=== PATIENT | male | born 1950 | race Caucasian/White ===

== ENCOUNTER 2021-10-05 10:16 | Inpatient (IN) | payer MEDICARE, OTHER, SELFPAY ==
[2021-10-05] VITALS (14 sets, daily range): BP systolic 108–127; BP diastolic 59–68; PULSE 95–145; RESP 18–24; TEMP 37–37.4; O2SAT 95–98; BMI 29.1
--- NOTE | 2021-10-05 10:23 | EKG12_ITS ---
Test Reason : FEVER Blood Pressure : / mmHG Vent. Rate : 123 BPM Atrial Rate : 123 BPM P-R Int : 160 ms QRS Dur : 072 ms QT Int : 320 ms P-R-T Axes : 012 -58 046 degrees QTc Int : 458 ms Sinus tachycardia Left axis deviation Abnormal ECG Confirmed by UNA SOSA, KRISSY ([id number]), acquisitions editor FILIPPO VELASQUEZ ([id number]) on 10/08/2021 11:38:19 AM Referred By: DESHAUN Confirmed By:KELBY HEART MD
--- NOTE | 2021-10-05 10:35 | EDS_ITS ---
HPI History of Present Illness Chief Complaint: Fever Informant: patient and spouse/S.O. Onset/Context/Timing Onset: Today and Hours Context: Gradual Onset Timing: Continuous Current Severity: Mild Maximum Severity: Mild Narrative Narrative: 71-year-old male history of prostate CA with bony mets 3 years ago. He has had a recurrence. He just started chemotherapy 1 to 2 weeks ago. 1 to 2 weeks ago he was treated at [facility] with nephrostomy tubes and ureteral stents. Nephrostomy tube has been removed. It sounds like he had an obstructive uropathy from the prostate cancer. Today he had a fever of 102.7 at home with chills. He denies any nausea, vomiting, cough, shortness of breath, abdominal pain or any dysuria. He is chronically incontinent for the last several months. Patient is also has a history of diabetes. He sees Dr. Ferrari of oncology. Prior similar symptoms: Yes [facility] Medical History (Updated 10/05/21 @ 12:[address] Leonard Antunez MD) Colon polyps Diabetes type 2, controlled Diverticulosis Hard of hearing Hypertension Kidney stones Marijuana use Prostate cancer Small cell carcinoma of prostate Snoring Tinnitus of both ears Wrist fracture, left Home Medications amlodipine 5 mg tablet 5 mg PO DAILY 10/05/21 [History Last Taken Unknown] docusate sodium 100 mg capsule (Stool Softener) 100 mg PO BID 10/05/21 [History Last Taken Unknown] finasteride 5 mg tablet 5 mg PO DAILY 10/05/21 [History Last Taken Unknown] glipizide 5 mg tablet 5 mg PO DAILY 10/05/21 [History Last Taken Unknown] hydralazine 10 mg tablet 20 mg PO TID 10/05/21 [History Last Taken Unknown] hydrocodone-acetaminophen 5-325mg 5mg-325mg 1 tab PO Q8H PRN Pain 10/05/21 [History Last Taken Unknown] sennosides 8.6 mg capsule (senna) 17.2 mg PO DAILY 10/05/21 [History Last Taken Unknown] sitagliptin 100 mg tablet 100 mg PO DAILY 10/05/21 [History Last Taken Unknown] tamsulosin 0.4 mg capsule 0.4 mg PO QHS 10/05/21 [History Last Taken Unknown] Allergy/AdvReac Type Severity Reaction Status Date / Time diphenhydramine Allergy CONFUSION Verified 10/05/21 10:17 [From [facility]] Social History Smoking Status: Former smoker ROS ROS ED ROS Narrative Fever and chills. Review of Systems ROS Unobtainable: Denies due to encephalopathy Constitutional Constitutional ED: Reports chills and fever(s) Eyes Eyes: Denies blurry vision ENT ENT ED: Denies ear pain Cardiovascular Cardiovascular: Denies chest pain Respiratory/Chest Respiratory/Chest: Denies cough or dyspnea Gastrointestinal Gastrointestinal: Denies abdominal pain, constipation, diarrhea, melena, nausea or vomiting Genitourinary Genitourinary ED: Denies dysuria or hematuria Musculoskeletal Musculoskeletal: Denies arthralgias Integumentary Denies abscess Neurologic Neurologic: Denies headache(s) Psychiatric Psychiatric: Denies anxiety Endocrine Endocrinology: Denies cold intolerance Hematologic/Lymphatic Hematologic/Lymphatic: Denies systems reviewed and no addt'l complaints, except as documented or easy bruising Allergic/Immunologic Allergic/Immunologic ED: Denies mouth swelling EXAM Physical Exam Narrative Exam Narrative: 71-year-old male vital signs are stable. Initial temperature is 98.6 but he feels warm like he still has a fever. He was given no antipyretics at home. Pulse ox is 95% on room air. Initial blood pressure 113/61. H EENT exam which was membranes. Otherwise unremarkable. Neck nontender no meningismus. No lymphadenopathy. Lungs clear to auscultation bilaterally. Heart tachycardic rate about 130 no murmur. Abdomen soft nontender normal bowel sounds no peritoneal signs. Moving all 4 extremities. Calves are nontender without edema or cords. Skin no rashes. Back nontender. Neurologically is awake and alert. Answering questions following commands Const Vital Signs: 10/05/21 10:17 10/05/21 10:50 10/05/21 10:53 Temperature 98.6 F 98.6 F 98.6 F Temperature Source Temporal Oral Oral Pulse Rate 145 H 145 H Respiratory Rate 20 H 20 H Respiratory Effort Blood Pressure 113/61 113/61 Blood Pressure Mean 78 Pulse Ox 95 95 Oxygen Delivery Method Room Air Room Air 10/05/21 10:53 10/05/21 10:53 10/05/21 10:53 Temperature 98.6 F Temperature Source Oral Pulse Rate Respiratory Rate Respiratory Effort Normal Non-Labored Blood Pressure Blood Pressure Mean Pulse Ox 95 Oxygen Delivery Method Room Air 10/05/21 11:25 10/05/21 11:25 10/05/21 11:26 Temperature 98.7 F 98.7 F Temperature Source Oral Oral Pulse Rate 111 H 111 H Respiratory Rate 19 H 19 H Respiratory Effort Blood Pressure 115/59 L 115/59 L Blood Pressure Mean 77 Pulse Ox 96 96 Oxygen Delivery Method Room Air Room Air Positive well nourished and well developed; Negative for obese, cachectic, contractures or unkempt General Appearance ED: well developed; Negative for unkempt, cachectic, contractures or pallor Nutritional Appearance: Negative for cachectic or obese HEENT Reports moist mucous membranes; Denies dry mucous membranes Negative for trauma or tenderness Mouth ED: No dry mucous membranes Mouth: No dry mucous membranes Eyes PERRL and EOMs intact bilaterally General Eye ED: Negative for pale conjunctiva or scleral icterus Neck no lymphadenopathy, supple and no JVD General: Negative for tenderness Chest Wall inspection of chest normal and palpation of chest normal Resp normal respiratory effort and clear to auscultation bilaterally Effort and Inspection: Negative for retractions Auscultation: Negative for rales, rhonchi or wheezes Cardio regular rhythm, S1 normal heart sound, S2 normal heart sound and no murmurs; Negative for regular rate Palpation: Negative for palpable S3 Rate: tachycardic; Negative for bradycardia GI normal to inspection, nondistended, normoactive bowel sounds, non-tender, non- distended and no masses Inspection: Negative for abdominal distention Auscultation: normoactive bowel sounds Palpation: soft; Negative for tender, guarding or splenomegaly Back/Spine no CVA tenderness General Back: Negative for CVA tenderness Extremity normal to inspection General Extremety ED: Negative for edema or tenderness General Extremity: Negative for edema Neuro oriented x3, CN's II-XII intact bilaterally and no sensory deficits noted Sensorium / Orientation: alert; Negative for orientation impaired Motor Exam: Negative for strength 5/5 throughout Psych mental status grossly normal Appearance: Negative for unkempt Attitude: No agitated Mood & Affect: Negative for depressed Skin no rashes or lesions noted and no wounds General Skin Exam: Negative for elasticity normal, jaundice or pallor Rashes: No rashes noted Trauma: Negative for abrasion Wounds: Negative for wounds noted MDM MDM MDM Narrative Medical decision making narrative: 71-year-old male currently under chemotherapy for prostate CA with metastases. Recent hospitalization for surgery and ureteral stents. Today developed a fever 1-2.7 at home. He will undergo a septic work-up. Treated with IV fluids. P.o. Tylenol. And suspected admission. Multiple repeat exams the patient is doing well at 12:10 PM. He will be admitted to the hospital. I will speak to the hospitalist if they want antibiotics started or not. Lab Data Attestation: I reviewed the patient's lab results. Lab results narrative: CBC shows white count 1.5. H&H 10.7 and 31.7. Platelets of 123. No old labs available in our system for comparison. Patient is obviously pancytopenic. 73% neutrophils 5% bands. PT/INR and PTT are unremarkable. Electrolytes show sodium 133. A gap of 9 BUN and creatinine of 20 and 1.1. Glucose of 139. Liver enzymes unremarkable except for ALK PHOS of 162. Lactic acid is elevated 2.4. Urinalysis shows no nitrites. Urinalysis shows no nitrates, no white cells and no bacteria. Positive for leukocyte esterase and red cells. Culture will be sent. Discussed with hospitalist. He is going to start the patient on cefepime IV. He will be admitted to medical surgical unit. Labs: Laboratory Results - last 24 hr 10/05/21 10/05/21 10/05/21 10:45 10:45 10:45 WBC 1.5 L RBC 3.53 L Hgb 10.7 L Hct 31.7 L MCV 89.8 MCH 30.3 MCHC 33.8 RDW Std Deviation 59.9 H RDW Coeff of Sunshine 18.8 H Plt Count 123 L MPV 9.1 Neut % (Auto) Not Reportable Total Counted 100 Neutrophils % (Manual) 73 H Band Neutrophils % 5 Lymphocytes % (Manual) 19 Monocytes % (Manual) 2 Metamyelocytes % 1 Diff Path Review May foll Platelet Estimate SLT DEC RBC Morphology N CHROM Anisocytosis 1+ PT 13.6 INR 1.1 APTT 27.5 Sodium 133 L Potassium 3.9 Chloride 103 Carbon Dioxide 21.0 Anion Gap 9 BUN 20 H Creatinine 1.10 Estim Creat Clear Calc 67.50 Est GFR (MDRD) Af Amer 85 Est GFR (MDRD) Non-Af 70 BUN/Creatinine Ratio 18.2 Glucose 139 H Lactic Acid Calcium 9.1 Total Bilirubin 0.90 AST 26 ALT 44 Alkaline Phosphatase 162 H Total Protein 6.4 Albumin 3.3 Globulin 3.1 Albumin/Globulin Ratio 1.1 Urine Color Urine Clarity Urine pH Ur Specific [place] Urine Protein Urine Glucose (UA) Urine Ketones Urine Occult Blood Urine Nitrite Urine Bilirubin Urine Urobilinogen Ur Leukocyte Esterase Urine RBC Urine WBC Ur Squamous Epith Cells Urine Bacteria Urine Mucus 10/05/21 10/05/21 10:45 11:00 WBC RBC Hgb Hct MCV MCH MCHC RDW Std Deviation RDW Coeff of Sunshine Plt Count MPV Neut % (Auto) Total Counted Neutrophils % (Manual) Band Neutrophils % Lymphocytes % (Manual) Monocytes % (Manual) Metamyelocytes % Diff Path Review Platelet Estimate RBC Morphology Anisocytosis PT INR APTT Sodium Potassium Chloride Carbon Dioxide Anion Gap BUN Creatinine Estim Creat Clear Calc Est GFR (MDRD) Af Amer Est GFR (MDRD) Non-Af BUN/Creatinine Ratio Glucose Lactic Acid 2.4 H* Calcium Total Bilirubin AST ALT Alkaline Phosphatase Total Protein Albumin Globulin Albumin/Globulin Ratio Urine Color Yellow Urine Clarity Cloudy Urine pH 6.5 Ur Specific [place] 1.010 Urine Protein 100 H Urine Glucose (UA) Normal Urine Ketones Negative Urine Occult Blood 250 H Urine Nitrite Negative Urine Bilirubin Negative Urine Urobilinogen 1 H Ur Leukocyte Esterase 100 H Urine RBC 50-100 SEEN Urine WBC 0-5 SEEN Ur Squamous Epith Cells 0 SEEN Urine Bacteria 0 SEEN Urine Mucus 0 SEEN Radiography Chest X-Ray - ED: 1 View, Read by ED Physician, Heart, Lungs, Mediastinum, Bony Structures, No Acute Disease and Chronic Changes Diagnostic Testing: Clinical Impression(s) from Imaging Studies Chest X-Ray 10/05/21 11:10 IMPRESSION: Lungs are clear. Electronically Signed: Taran Bowers MD at 11:22 EDT , Chest, portable, single view interpreted by myself and radiologist shows no acute abnormality. Normal cardiac silhouette and mediastinum. Rhythm Strip Rhythm Strip: Sinus Tach Rate: 125 Ectopy: None EKG Initial EKG: Attestation: I personally reviewed and interpreted this EKG as follows: Interpretation: No Acute Injury Pattern and Sinus Tachycardia Comments: Sinus tachycardia rate of 123. No acute signs of TX or ischemia. Discharge Plan Dx/Rx/DC Orders Clinical Impression: Neutropenic fever, Prostate cancer metastatic to multiple sites, Pancytopenia, Immunocompromised patient, History of diabetes mellitus Disposition Disposition: Acute Care Hospital [facility]
[2021-10-05] MEDS: 0.9% Normal Saline 1,000 ML 999 ML IV (10:44)
[2021-10-05] MEDS: Acetaminophen 500 MG Tablet 1000 MG PO (10:49)
[2021-10-05 10:53] LABS: Hematocrit 31.7 % (40-54); Hemoglobin 10.7 g/dL (13.0-16.5); Mean Corp Hgb Conc 33.8 g/dL (32-36); Mean Corpuscular Hgb 30.3 pg (27.0-32.0); Mean Corpuscular Volume 89.8 fL (80-94); Mean Platelet Vol. 9.1 fl (6.2-12.0); POSITIVE COUNT YES; POSITIVE DIFFERENTIAL YES; POSITIVE MORPHOLOGY YES; Platelet Count 123 K/mm3 (150-450); RBC Distribution Width CV 18.8 % (11.6-14.6); RBC Distribution Width SD 59.9 fl (35.1-43.9); Red Blood Count 3.53 M/mm3 (4.6-6.2); White Blood Count 1.5 K/mm3 (4.4-11.0)
[2021-10-05 10:54] LABS: Differential Indicated MANUAL DIFF
[2021-10-05 11:02] LABS: International Normalized Ratio 1.1; Partial Thromboplast Time 27.5 Seconds (24.1-36.2); Prothrombin Time (Protime)PT. 13.6 SECONDS (11.7-14.9)
[2021-10-05 11:09] LABS: ALB/GLOB Ratio 1.1 RATIO (0.9-2.4); AST(SGOT) 26 U/L (15-37); Alanine Aminotransfer ALT/SGPT 44 U/L (16-61); Albumin, Serum 3.3 g/dL (3.2-5.0); Alkaline Phosphatase 162 U/L (45-117); Anion Gap 9 (5-15); BUN 20 mg/dL (7-18); BUN/Creat Ratio 18.2 RATIO (10-20); Calcium,Total 9.1 mg/dL (8.5-10.1); Chloride 103 mmol/L (98-107); EST Glomerular Filtration Rate 70 mL/min (>60); Est Glom Filt Rate - Afr Amer 85 mL/min (>60); Globulin 3.1 g/dL (2.2-4.2); Glucose 139 mg/dL (74-106); Potassium 3.9 mmol/L (3.5-5.1); Protein, Total 6.4 g/dL (6.4-8.2); Sodium Level 133 mmol/L (136-145)
--- NOTE | 2021-10-05 11:10 | RAD_ITS ---
STUDY: X-RAY CHEST REASON FOR EXAM: Male, 71 years old. FEVER . Oncology patient. TECHNIQUE: Single AP portable view of the chest. COMPARISON: None. FINDINGS: EKG electrodes are seen. The lungs are clear and expanded. There is no demonstrated pleural abnormality. Normal size heart. Normal mediastinum and carly. Normal visualized pulmonary arteries. There is atherosclerotic tortuosity of the aortic arch and descending thoracic aorta. There are diffuse degenerative changes of the visualized thoracic spine. Normal visualized ribs, clavicles, and shoulders. There is no demonstrated abnormality of the visualized soft tissue structures of the upper abdomen. RAD/Chest 1 View (Portable) IMPRESSION: Lungs are clear. Electronically Signed: Taran Bowers MD at 11:22 EDT ,
[2021-10-05 11:14] LABS: Bacteria 0 SEEN /hpf (None Seen); Mucous, Urine 0 SEEN /hpf (<or=2+); Squamous Epithelial Cells - UA 0 SEEN /hpf (0-5)
[2021-10-05 11:15] LABS: Lactic Acid 2.4 mmol/L (0.4-1.9)
[2021-10-05 11:20] LABS: Color, Urine Yellow (Yellow); Glucose, Dipstick Normal (Normal); Ketone-Dipstick Negative (Negative); Leukocyte Esterase-Dipstick 100 /ul (Negative); Nitrite-Dipstick Negative (Negative); Occult Blood-Urine 250 /ul (Negative); Protein-Dipstick 100 mg/dl (Negative); Urine Bilirubin Dipstick Negative (Negative); Urine Clarity Cloudy (Clear); Urine Urobilinogen 1 mg/dl (Normal); Urine pH 6.5 (5.0 - 8.0)
[2021-10-05 11:24] LABS: Lymphocyte 19 % (19-41); Metamyelocyte 1 % (0-1); Monocyte 2 % (0-10); Neutrophil-Band 5 % (0-5); Neutrophil-Segmented 73 % (47-70); Total Cells Counted 100 (MANUAL DIFF)
[2021-10-05 11:26] LABS: Anisocytosis 1+; Platelet Estimate SLT DEC (ADEQ); Red Cell Morphology N CHROM NORMAL (NORM C&C)
[2021-10-05 11:41] LABS: Red Blood Cells-Urine 50-100 SEEN /hpf (0-5); White Blood Cells 0-5 SEEN /hpf (0-5)
[2021-10-05 12:37] LABS: Magnesium 1.6 mg/dL (1.6-2.6); Phosphorus 1.9 mg/dL (2.5-4.9)
--- NOTE | 2021-10-05 13:33 | HP.PCM.HOS_ITS ---
[facility] Date of Admission: 10/05/21 Date of Service: 10/05/21 Chief Complaint: Fever started today after chemotherapy, about 1 week. History of prostate cancer HPI Narrative LUPILLO RUEDA, is a 71 M with history of prostate cancer the patient to start of chemotherapy for 3 days 09/26-09/28 came to ED for fever. Patient noticed fever temperature measured 102.7 Fahrenheit with chills. Patient denies any focal symptoms of URI, cough sore throat, shortness of breath chest pain or pressure, burning micturition/dysuria, abdominal pain, nausea vomiting or diarrhea. Prior to that patient was admitted in [facility] between -25 September and had right inguinal orchidectomy and found to have a small cell cancer, prostate origin w ith metastasis to epididymis. Patient has urinary incontinence. He also had obstructive uropathy with decreased urine output which required bilateral nephrostomy tube and bilateral ureteric stent. After that patient started making urine and nephrostomy tubes are removed. Patient follows Dr. ROBERTO. His office note of 09/17/2021 reviewed. He was diagnosed with prostate adenocarcinoma PSA 69.60, Plaistow's score 8, clinical stage IV. T1 cN0 M1 with single bone metastasis. Patient was diagnosed with prostate cancer and had brachytherapy and RT to left pelvic bone. Patient also history of Lupron/Casodex and denosumab discontinued in May 2020. Patient is also chronic smoker he quit in 2005. He started smoking in his teenage and was intermittently smoker with multiple relapses and quitting. He said he was not a heavy smoker. [facility] Medical History Colon polyps Diabetes type 2, controlled Diverticulosis Hard of hearing Hypertension Kidney stones Marijuana use Prostate cancer Small cell carcinoma of prostate Snoring Tinnitus of both ears Wrist fracture, left Home Medications amlodipine 5 mg tablet 5 mg PO DAILY 10/05/21 [History Last Taken Unknown] docusate sodium 100 mg capsule (Stool Softener) 100 mg PO BID 10/05/21 [History Last Taken Unknown] finasteride 5 mg tablet 5 mg PO DAILY 10/05/21 [History Last Taken Unknown] glipizide 5 mg tablet 5 mg PO DAILY 10/05/21 [History Last Taken Unknown] hydralazine 10 mg tablet 20 mg PO TID 10/05/21 [History Last Taken Unknown] hydrocodone-acetaminophen 5-325mg 5mg-325mg 1 tab PO Q8H PRN Pain 10/05/21 [History Last Taken Unknown] sennosides 8.6 mg capsule (senna) 17.2 mg PO DAILY 10/05/21 [History Last Taken Unknown] sitagliptin 100 mg tablet 100 mg PO DAILY 10/05/21 [History Last Taken Unknown] tamsulosin 0.4 mg capsule 0.4 mg PO QHS 10/05/21 [History Last Taken Unknown] Allergy/AdvReac Type Severity Reaction Status Date / Time diphenhydramine Allergy CONFUSION Verified 10/05/21 10:17 [From Benadryl] Social History Smoking Status: Former smoker ROS ROS Narrative Constitutional: Reports fatigue and weakness. Fever HEENT: Reports systems reviewed and no addt'l complaints, except as documented Respiratory/Chest: Denies chest pain, shortness of breath at rest or with exertion Gastrointestinal: Denies coffee ground emesis, hematemesis or vomiting Genitourinary: Denies burning urination . Chronic urinary incontinence. Right orchidectomy Musculoskeletal: Denies joint pain and limited range of motion Neurologic: Denies seizure-like activity skin: No ulcer. No rash Endocrinology: Reports systems reviewed and no addt'l complaints, except as documented Hematologic/Lymphatic: Reports systems reviewed and no addt'l complaints, except as documented Rest 14 ROS are negative except as mentioned in HPI Vital Signs Vital Signs Vital Signs: 10/05/21 10:17 10/05/21 10:50 10/05/21 10:53 Temperature 98.6 F 98.6 F 98.6 F Temperature Source Temporal Oral Oral Pulse Rate 145 H 145 H Respiratory Rate 20 H 20 H Respiratory Effort Blood Pressure 113/61 113/61 Blood Pressure Mean 78 Pulse Ox 95 95 Oxygen Delivery Method Room Air Room Air 10/05/21 10:53 10/05/21 10:53 10/05/21 10:53 Temperature 98.6 F Temperature Source Oral Pulse Rate Respiratory Rate Respiratory Effort Normal Non-Labored Blood Pressure Blood Pressure Mean Pulse Ox 95 Oxygen Delivery Method Room Air 10/05/21 11:25 10/05/21 11:25 10/05/21 11:26 Temperature 98.7 F 98.7 F Temperature Source Oral Oral Pulse Rate 111 H 111 H Respiratory Rate 19 H 19 H Respiratory Effort Blood Pressure 115/59 L 115/59 L Blood Pressure Mean 77 Pulse Ox 96 96 Oxygen Delivery Method Room Air Room Air 10/05/21 12:00 10/05/21 12:00 10/05/21 12:00 Temperature 98.6 F 98.6 F Temperature Source Oral Oral Pulse Rate 105 H 105 H Respiratory Rate 24 H 24 H Respiratory Effort Blood Pressure 108/64 108/64 Blood Pressure Mean 78 Pulse Ox 95 95 Oxygen Delivery Method Room Air Room Air 10/05/21 12:20 10/05/21 13:09 10/05/21 13:09 Temperature 98.6 F 98.9 F Temperature Source Oral Temporal Pulse Rate 105 H 102 H Respiratory Rate 24 H 23 H Respiratory Effort Blood Pressure 108/64 109/65 Blood Pressure Mean 79 Pulse Ox 95 95 Oxygen Delivery Method Room Air Room Air 10/05/21 13:10 Temperature 98.9 F Temperature Source Temporal Pulse Rate 102 H Respiratory Rate 23 H Respiratory Effort Blood Pressure 109/65 Blood Pressure Mean Pulse Ox 95 Oxygen Delivery Method Room Air Weight Weight: 208 lb 15.971 oz Body Mass Index (BMI) 29.1 Physical Exam Narrative General: Alert, Oriented x3, Cooperative HEENT: Atraumatic, PERRLA, EOMI, Normocephalic Oral: Oral mucosa dry. No Gingival or Mucosal Lesions/ Ulcerations Neck: Supple, No JVD, Negative Carotid Bruits Lungs: Air entry diminished in bilateral lung bases. No crepitation/rhonchi Cardiovascular: Sinus tachycardia, Normal S1, Normal S2, No murmurs Abdomen: Bowel Sounds Present, Soft, Non Tender, Non-Distended : Right inguinal surgical scar well-healed. No bruise/purulent discharge. Urinary incontinence. No renal angle/suprapubic tenderness. Extremities: No edema, Capillary Refill Less than 3 Seconds Skin: No rashes, No breakdown Musculoskeletal: No Tenderness to Palpation of Joints or Extremities. ROM full Neurological: Cranial nerves II-XII grossly intact, DTR 2+/4. Muscle strength 4/5 at major joints Psych/Mental Status: Normal Affect, Appropriate. Results Lab / Micro Data Result Diagrams: 10/05/21 10:45 10/05/21 10:45 Labs: Laboratory Results - last 24 hr 10/05/21 10:45: WBC 1.5 L, RBC 3.53 L, Hgb 10.7 L, Hct 31.7 L, MCV 89.8, MCH 30.3, MCHC 33.8, RDW Std Deviation 59.9 H, RDW Coeff of Sunshine 18.8 H, Plt Count 123 L, MPV 9.1, Neut % (Auto) Not Reportable, Total Counted 100, Neutrophils % (Manual) 73 H, Band Neutrophils % 5, Lymphocytes % (Manual) 19, Monocytes % (Manual) 2, Metamyelocytes % 1, Diff Path Review July, Platelet Estimate SLT DEC, RBC Morphology N CHROM, Anisocytosis 1+ 10/05/21 10:45: PT 13.6, INR 1.1, APTT 27.5 10/05/21 10:45: Sodium 133 L, Potassium 3.9, Chloride 103, Carbon Dioxide 21.0, Anion Gap 9, BUN 20 H, Creatinine 1.10, Estim Creat Clear Calc 67.50, Est GFR (M DRD) Af Amer 85, Est GFR (MDRD) Non-Af 70, BUN/Creatinine Ratio 18.2, Glucose 139 H, Calcium 9.1, Total Bilirubin 0.90, AST 26, ALT 44, Alkaline Phosphatase 162 H, Total Protein 6.4, Albumin 3.3, Globulin 3.1, Albumin/Globulin Ratio 1.1 10/05/21 10:45: Lactic Acid 2.4 H* 10/05/21 10:45: Phosphorus 1.9 L, Magnesium 1.6 10/05/21 11:00: Urine Color Yellow, Urine Clarity Cloudy, Urine pH 6.5, Ur Specific [place] 1.010, Urine Protein 100 H, Urine Glucose (UA) Normal, Urine Ketones Negative, Urine Occult Blood 250 H, Urine Nitrite Negative, Urine Bilirubin Negative, Urine Urobilinogen 1 H, Ur Leukocyte Esterase 100 H, Urine RBC 50-100 SEEN, Urine WBC 0-5 SEEN, Ur Squamous Epith Cells 0 SEEN, Urine Bacteria 0 SEEN, Urine Mucus 0 SEEN Rhythm Strip Rhythm Strip: Sinus Tach Rate: 125 Ectopy: None Radiology Impression Chest X-Ray 10/05/21 11:10 IMPRESSION: Lungs are clear. Electronically Signed: Taran Bowers MD at 11:22 EDT , Assessment & Plan Assessment/Plan (1) Neutropenic fever: (2) Prostate cancer metastatic to multiple sites: PLAN: Plan This is 71-year-old gentleman with history of prostate cancer admitted for neutropenic fever 1. Neutropenic fever complicated by recent chemotherapy: Patient had chemotherapy for contributive 3 days about a week 09/26?09/28. Patient started on cefepime. Blood cultures x2, urine culture ordered. UA LE 100, WBC 0-5, RBC 50?100 cells, nitrite negative urine bacteria 0. Denies dysuria. Chest x-ray individually reviewed shows no infiltrate. Patient does not have abdominal pain/rash/URI or LRI. Exact focus of infection unclear. 2. Pancytopenia complicated by chemotherapy: WBC count 1.5 thousand, neutrophil manual 73% about 1000. ANC not reported yet. Does not need Granix. H&H 10.7/31%, platelet count 1 23,000. Monitor CBC with differential daily. 3. Prostate adenocarcinoma, Plaistow's score 8 and clinical stage IV, T1 cN0 M1 with single bone metastasis with recent metastasis to right epididymis status post right high inguinal orchiectomy in [facility]: Patient follows Dr. ROBERTO. He was recently admitted in [facility] between ?25 September. 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 4. Diabetes mellitus type 2: Patient on oral hypoglycemic agents. Glucose is 139. 5. Electrolyte abnormality: Magnesium 1.6 low normal, phosphorus 1.9. Magnesium and phosphorus replaced 7. Other comorbidities include hypertension, diverticulosis, history of kidney stones: Well-controlled. BP 109/65. VT prophylaxis: High risk. Lovenox 40 m subcu daily. Bilateral SCDs Laboratory Results 10/05/21 10:45: WBC 1.5 L, RBC 3.53 L, Hgb 10.7 L, Hct 31.7 L, MCV 89.8, MCH 30.3, MCHC 33.8, RDW Std Deviation 59.9 H, RDW Coeff of Sunshine 18.8 H, Plt Count 123 L, MPV 9.1, Neut % (Auto) Not Reportable, Absolute Neuts (auto) Pending, Absolute Lymphs (auto) Pending, Total Counted 100, Neutrophils % (Manual) 73 H, Band Neutrophils % 5, Lymphocytes % (Manual) 19, Monocytes % (Manual) 2, Metam yelocytes % 1, Diff Path Review July, Platelet Estimate SLT DEC, RBC Morphology N CHROM, Anisocytosis 1+ 10/05/21 10:45: PT 13.6, INR 1.1, APTT 27.5 10/05/21 10:45: Sodium 133 L, Potassium 3.9, Chloride 103, Carbon Dioxide 21.0, Anion Gap 9, BUN 20 H, Creatinine 1.10, Estim Creat Clear Calc 67.50, Est GFR (MDRD) Af Amer 85, Est GFR (MDRD) Non-Af 70, BUN/Creatinine Ratio 18.2, Glucose 139 H, Calcium 9.1, Total Bilirubin 0.90, AST 26, ALT 44, Alkaline Phosphatase 162 H, Total Protein 6.4, Albumin 3.3, Globulin 3.1, Albumin/Globulin Ratio 1.1 10/05/21 10:45: Lactic Acid 2.4 H* 10/05/21 10:45: Phosphorus 1.9 L, Magnesium 1.6 10/05/21 11:00: Urine Color Yellow, Urine Clarity Cloudy, Urine pH 6.5, Ur Specific [place] 1.010, Urine Protein 100 H, Urine Glucose (UA) Normal, Urine Ketones Negative, Urine Occult Blood 250 H, Urine Nitrite Negative, Urine Bilirubin Negative, Urine Urobilinogen 1 H, Ur Leukocyte Esterase 100 H, Urine RBC 50-100 SEEN, Urine WBC 0-5 SEEN, Ur Squamous Epith Cells 0 SEEN, Urine Bacteria 0 SEEN, Urine Mucus 0 SEEN Clinical Impression(s) from Imaging Studies Chest X-Ray 10/05/21 11:10
[2021-10-05 14:09] LABS: Nucleated Red Bld Cells,Manual 1.5 % (0-5)
[2021-10-05 14:10] LABS: Absolute Neutrophil Count 1.2 X10^3/uL (2.0-7.7); Neutrophil # 1.17 X10^3/uL (2.7-7.7)
[2021-10-05 14:11] LABS: Absolute Lymphocyte Count 0.28 X10^3/uL (0.83-4.51); Lymphocyte # 0.28 X10^3/ul (0.83-4.51)
[2021-10-05 14:49] LABS: Reflex Lactate? Y
[2021-10-05 15:31] LABS: Lactic Acid 1.9 mmol/L (0.4-1.9)
[2021-10-05] MEDS: Enoxaparin 40 MG/0.4 ML Syringe SC (15:32)
[2021-10-05] MEDS: 0.9% Normal Saline 1,000 ML 100 ML IV (15:32)
[2021-10-05] MEDS: hydrALAZINE 10 MG Tablet 20 MG PO ×2 (15:32→22:17)
[2021-10-05] MEDS: Senna/Docusate Sodium 1 Tablet 2 TABLET PO (22:17)
[2021-10-05] MEDS: Acetaminophen 325 MG Tablet 650 MG PO (23:39)
[2021-10-06] VITALS (8 sets, daily range): BP systolic 99–143; BP diastolic 58–96; PULSE 87–118; RESP 16–18; TEMP 36.5–37.6; O2SAT 96–99
[2021-10-06] MEDS: 0.9% Normal Saline 1,000 ML 100 ML IV (02:14)
[2021-10-06] MEDS: oxyCODONE 5 MG Tablet PO (02:35)
[2021-10-06] MEDS: hydrALAZINE 10 MG Tablet 20 MG PO (06:06)
[2021-10-06 07:19] LABS: Hematocrit 26.3 % (40-54); Hemoglobin 8.7 g/dL (13.0-16.5); Mean Corp Hgb Conc 33.1 g/dL (32-36); Mean Corpuscular Hgb 30.9 pg (27.0-32.0); Mean Corpuscular Volume 93.3 fL (80-94); Mean Platelet Vol. 9.7 fl (6.2-12.0); POSITIVE COUNT YES; POSITIVE DIFFERENTIAL YES; POSITIVE MORPHOLOGY YES; Platelet Count 61 K/mm3 (150-450); RBC Distribution Width CV 18.6 % (11.6-14.6); RBC Distribution Width SD 62.9 fl (35.1-43.9); Red Blood Count 2.82 M/mm3 (4.6-6.2)
[2021-10-06 07:28] LABS: Differential Indicated MANUAL DIFF; White Blood Count 1.3 K/mm3 (4.4-11.0)
[2021-10-06 07:31] LABS: ALB/GLOB Ratio 0.9 RATIO (0.9-2.4); AST(SGOT) 28 U/L (15-37); Alanine Aminotransfer ALT/SGPT 42 U/L (16-61); Albumin, Serum 2.5 g/dL (3.2-5.0); Alkaline Phosphatase 107 U/L (45-117); Anion Gap 6 (5-15); BUN 17 mg/dL (7-18); BUN/Creat Ratio 18.7 RATIO (10-20); Calcium,Total 8.5 mg/dL (8.5-10.1); Chloride 107 mmol/L (98-107); Creatinine, Serum 0.91 mg/dL (0.70-1.30); EST Glomerular Filtration Rate 88 mL/min (>60); Est Glom Filt Rate - Afr Amer 107 mL/min (>60); Globulin 2.7 g/dL (2.2-4.2); Glucose 156 mg/dL (74-106); Potassium 3.4 mmol/L (3.5-5.1); Protein, Total 5.2 g/dL (6.4-8.2); Sodium Level 136 mmol/L (136-145)
[2021-10-06 07:34] LABS: Hemoglobin A1c 6.2 % (3.8-5.6)
[2021-10-06 08:23] LABS: Lymphocyte 21 % (19-41); Metamyelocyte 1 % (0-1); Monocyte 7 % (0-10); Neutrophil-Band 3 % (0-5); Neutrophil-Segmented 68 % (47-70); Total Cells Counted 100 (MANUAL DIFF)
[2021-10-06 08:25] LABS: Platelet Estimate MOD DEC (ADEQ); Red Cell Morphology NORM C+C NORMAL (NORM C&C)
[2021-10-06 08:26] LABS: Absolute Lymphocyte Count 0.27 X10^3/uL (0.83-4.51); Absolute Neutrophil Count 0.9 X10^3/uL (2.0-7.7)
[2021-10-06] MEDS: Potassium Chloride Oral Tablet 20 MEQ 40 MEQ PO (08:42)
[2021-10-06] MEDS: LINAGLIPTIN 5 MG TABLET PO (08:44)
[2021-10-06] MEDS: Finasteride 5 MG Tablet PO (08:44)
[2021-10-06] MEDS: glipiZIDE 5 MG Tablet PO (08:45)
[2021-10-06] MEDS: Senna/Docusate Sodium 1 Tablet 2 TABLET PO ×2 (08:45→21:31)
[2021-10-06 09:21] LABS: Magnesium 1.7 mg/dL (1.6-2.6); Phosphorus 2.4 mg/dL (2.5-4.9)
--- NOTE | 2021-10-06 12:05 | CASEMGMT ---
MURRAY SALAMANCA assessment: Face to Face with patient for initial transition planning/care coordination assessment. RN CHEIKH introduced self and role at [facility], pt voices understanding and consents to assessment. Pt is standing at side of bed in no distress on room air. Pt is A/Ox4 and answers all questions appropriately. Care providers, pharmacy,?and demographics verified. ? Presentation: Pt c/o fever, 102 and on chemo for abd cancer-sees Vonda Admitting dx: Neutropenic fever PCP: Kang Specialists: Vonda, onc; pt states several other doctors but doesn't know all names [facility] Insurance: MCR/ Prescription Benefit:?Yes Living Will/HPOA: Pt does not have LW/HPOA but states info at home. Pt declines need for AD info. LNOK: Audrey Alonso, Living Arrangements: Pt lives with in 2 story home and states no concerns at home. Pt is independent with ADL's. Transportation: Pt states drives self or drives and states no transportation concerns. DME/HHC: Pt does not currently have any DME or states no need for any DME. Pt states no hx of HHC or SNF. Pt states no concerns with going home at time of discharge. Pt is retired. Pt does not smoke cigarettes or drink ETOH 'anymore'. Pt states no further concerns/needs. CM to follow for any further discharge planning/needs. Advised pt to ask for CM if any further questions/concerns/needs arise, voices understanding. Pt Goal: Home ? Plan: [place] MURRAY SALAMANCA
--- NOTE | 2021-10-06 12:42 | PCM.PN.HOSP ---
Subjective Subjective Patient is awake alert and x3. Low-grade temperature T-max 99.7 Fahrenheit Objective Data Objective Data Vital Signs: Vital Signs Temp Pulse Resp BP Pulse Ox O2 Del Method 98.4 F 97 18 99/64 96 Room Air 10/06/21 08:00 10/06/21 08:00 10/06/21 08:00 10/06/21 08:00 10/06/21 08:00 10/06/21 08:00 Oxygen Delivery Method Room Air Weight: 208 lb 7 oz Body Mass Index (BMI) 29.1 Intake & Output: Intake and Output for Last 24 Hours 10/04/21 10/05/21 10/06/21 23:59 23:59 23:59 Intake Total 1836.67 / 2636.67 2640 / 2640 Balance 1836.67 / 2636.67 2640 / 2640 Medical Nutrition Assessment Dietitian: Malnutrition Criteria Met Start: 10/05/21 15:32 Freq: Status: Active Protocol: Document 10/05/21 15:35 ELO (Rec: 10/05/21 15:35 ELO [id number]) Nutrition Malnutrition Evidence of Malnutrition Exists Yes Malnutrition (severe): Chronic Evidenced By Suboptimal Energy Intake ( Severe),Weight Loss (Severe) Clinical Problem Chronic Disease or Condition Related Malnutrition Etiology related to cancer tx and inability to consume adequate nutrition to meet est nutritional needs Signs/Symptoms as evidenced by <50% po intake and wt loss of 13.8% wt loss in past six weeks Status Active Problem Recommendation Dietitian Recommendations/Changes Will liberalize diet to Regular d/t s/s of malnutrition Will provide 8 oz glucerna shake smoothie w/ Breakfast, 4 oz glucerna shake w/ lunch and dinner Will change pt to select diet so he can choose his own menu Lab / Micro Data Result Diagrams: 10/06/21 06:47 10/06/21 06:47 Labs: Laboratory Results - last 24 hr 10/05/21 10:45: Absolute Neuts (auto) 1.2 L, Absolute Lymphs (auto) 0.28 L, Nucleated RBCs/100 WBC 1.5 10/05/21 14:53: Lactic Acid 1.9 10/06/21 06:47: WBC 1.3 L*, RBC 2.82 L, Hgb 8.7 L, Hct 26.3 L, MCV 93.3, MCH 30.9, MCHC 33.1, RDW Std Deviation 62.9 H, RDW Coeff of Sunshine 18.6 H, Plt Count 61 L, MPV 9.7, Neut % (Auto) Not Reportable, Absolute Neuts (auto) 0.9 L, Absolute Lymphs (auto) 0.27 L, Total Counted 100, Neutrophils % (Manual) 68, Band Neutrophils % 3, Lymphocytes % (Manual) 21, Monocytes % (Manual) 7, Metamyelocytes % 1, Differential Comment , Diff Path Review July foll, Platelet Estimate MOD DEC, RBC Morphology NORM C+C 10/06/21 06:47: Sodium 136, Potassium 3.4 L, Chloride 107, Carbon Dioxide 23.0, Anion Gap 6, BUN 17, Creatinine 0.91, Estim Creat Clear Calc 81.60, Est GFR (MDRD) Af Amer 107, Est GFR (MDRD) Non-Af 88, BUN/Creatinine Ratio 18.7, Glucose 156 H, Calcium 8.5, Total Bilirubin 0.80, AST 28, ALT 42, Alkaline Phosphatase 107, Total Protein 5.2 L, Albumin 2.5 L, Globulin 2.7, Albumin/Globulin Ratio 0.9 10/06/21 06:47: Hemoglobin A1c 6.2 H 10/06/21 08:43: Phosphorus 2.4 L, Magnesium 1.7 Micro: Microbiology 10/05/21 11:00 Urine, Clean Catch Urine Culture - Final Mixed Gram Positive Organisms Rhythm Strip Rhythm Strip: Sinus Tach Rate: 125 Ectopy: None Physical Exam Narrative Seen and examined. No cough, URI or LRI symptoms. No burning micturition. No abdominal pain General: Alert, Oriented x3, Cooperative HEENT: Atraumatic, PERRLA, EOMI, Normocephalic Oral: Oral mucosa moist. No Gingival or Mucosal Lesions/ Ulcerations Neck: Supple, No JVD, Negative Carotid Bruits Lungs: Air entry diminished in bilateral lung bases. No crepitation/rhonchi Cardiovascular: Sinus rhythm, Normal S1, Normal S2, No murmurs Abdomen: Bowel Sounds Present, Soft, Non Tender, Non-Distended : Right inguinal surgical scar well-healed. No bruise/purulent discharge. Urinary incontinence. No renal angle/suprapubic tenderness. Extremities: No edema, Capillary Refill Less than 3 Seconds Skin: No rashes, No breakdown Musculoskeletal: No Tenderness to Palpation of Joints or Extremities. ROM full Neurological: Cranial nerves II-XII grossly intact, DTR 2+/4. Muscle strength 4/5 at major joints Psych/Mental Status: Normal Affect, Appropriate. Assessment & Plan Assessment/Plan (1) Neutropenic fever: (2) Prostate cancer metastatic to multiple sites: PLAN: Plan This is 71-year-old gentleman with history of prostate cancer admitted for neutropenic fever 1. Neutropenic fever complicated by recent chemotherapy: Patient had chemotherapy for contributive 3 days about a week 09/26?09/28. Patient started on cefepime. Blood cultures x2, urine culture ordered. UA LE 100, WBC 0-5, RBC 50?100 cells, nitrite negative urine bacteria 0. Denies dysuria. Chest x-ray individually reviewed shows no infiltrate. Patient does not have abdominal pain/rash/URI or LRI. Exact focus of infection unclear. 10/06: Continue IV antibiotic. Discussed with his oncologist Dr. Roberto yesterday. 2. Pancytopenia complicated by chemotherapy: WBC count 1.5 thousand, neutrophil manual 73% about 1000. ANC not reported yet. Does not need Granix. H&H 10.7/31%, platelet count 1 23,000. 10/06: WBC count 1.3 thousand, hemoglobin 8.7/26.3%. Platelet count dropped to 61,000. Discontinue pharmacological prophylaxis enoxaparin. No need for BM growth factor supplement. Monitor CBC daily 3. Prostate adenocarcinoma, Duke's score 8 and clinical stage IV, T1 cN0 M1 with single bone metastasis with recent metastasis to right epididymis status post right high inguinal orchiectomy in [facility]: Patient follows Dr. ROBERTO. He was recently admitted in [facility] between ?25 September. 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 10/06: I discussed his cancer history, tumor biology and treatment history with Dr Roberto on 10/05 evening. 4. Diabetes mellitus type 2: Patient on oral hypoglycemic agents. Glucose is 139. 10/06: A1c 6.2% glucose 156. 5. Electrolyte abnormality: Magnesium 1.6 low normal, phosphorus 1.9. Magnesium and phosphorus replaced 7. Other comorbidities include hypertension, diverticulosis, history of kidney stones: Well-controlled. BP 109/65. VT prophylaxis: High risk. Lovenox 40 m subcu daily. Bilateral SCDs Clinical Impression(s) from Imaging Studies Chest X-Ray 10/05/21 11:10 IMPRESSION: Lungs are clear. Electronically Signed: Taran Bowers MD at 11:22 EDT , Charges/Coding Visit Charges Inpatient E&M: 27336 Subs Hosp L2
[2021-10-07] VITALS (7 sets, daily range): BP systolic 122–134; BP diastolic 66–75; PULSE 83–97; RESP 16; TEMP 36.2–36.9; O2SAT 95–97
[2021-10-07] MEDS: hydrALAZINE 10 MG Tablet 20 MG PO (05:42)
[2021-10-07 05:54] LABS: Absolute Lymphocyte Count 0.91 X10^3/uL (0.83-4.51); Absolute Neutrophil Count 1.2 X10^3/uL (2.0-7.7); Basophil# 0.04 X10^3/uL; Basophil% 1.7 % (0-1); Eosinophil# 0.07 X10^3/uL; Eosinophils% 2.9 % (0-5); Hematocrit 25.9 % (40-54); Hemoglobin 8.6 g/dL (13.0-16.5); Lymphocyte # 0.91 X10^3/ul (0.83-4.51); Lymphocyte % 37.6 % (19-41); Mean Corp Hgb Conc 33.2 g/dL (32-36); Mean Corpuscular Hgb 30.5 pg (27.0-32.0); Mean Corpuscular Volume 91.8 fL (80-94); Mean Platelet Vol. 10.2 fl (6.2-12.0); Monocyte# 0.22 X10^3/uL; Monocyte% 9.1 % (0-10); NRBC Flagged by Analyzer 0.8 % (0-5); Neutrophil # 1.16 X10^3/uL (2.7-7.7); Neutrophil % 47.9 % (47-70); POSITIVE COUNT YES; POSITIVE MORPHOLOGY YES; Platelet Count 70 K/mm3 (150-450); RBC Distribution Width CV 18.8 % (11.6-14.6); RBC Distribution Width SD 62.4 fl (35.1-43.9); Red Blood Count 2.82 M/mm3 (4.6-6.2); White Blood Count 2.4 K/mm3 (4.4-11.0)
[2021-10-07 06:09] LABS: Differential Indicated SCAN CRITERIA MET
[2021-10-07 06:25] LABS: ALB/GLOB Ratio 0.8 RATIO (0.9-2.4); AST(SGOT) 32 U/L (15-37); Alanine Aminotransfer ALT/SGPT 52 U/L (16-61); Albumin, Serum 2.4 g/dL (3.2-5.0); Alkaline Phosphatase 94 U/L (45-117); Anion Gap 5 (5-15); BUN 13 mg/dL (7-18); BUN/Creat Ratio 17.6 RATIO (10-20); Calcium,Total 8.7 mg/dL (8.5-10.1); Chloride 111 mmol/L (98-107); Creatinine, Serum 0.74 mg/dL (0.70-1.30); EST Glomerular Filtration Rate 112 mL/min (>60); Est Glom Filt Rate - Afr Amer 135 mL/min (>60); Estimated Creatinine Clearance 74.25 ml/min; Glucose 107 mg/dL (74-106); Potassium 3.6 mmol/L (3.5-5.1); Protein, Total 5.4 g/dL (6.4-8.2); Sodium Level 140 mmol/L (136-145)
[2021-10-07 06:26] LABS: Phosphorus 2.7 mg/dL (2.5-4.9)
[2021-10-07 06:52] LABS: Anisocytosis 1+
[2021-10-07 06:54] LABS: Platelet Estimate MOD DEC (ADEQ)
[2021-10-07] MEDS: Potassium Chloride Oral Tablet 20 MEQ 40 MEQ PO (07:41)
[2021-10-07] MEDS: glipiZIDE 5 MG Tablet PO (07:42)
[2021-10-07] MEDS: Finasteride 5 MG Tablet PO (07:42)
[2021-10-07] MEDS: Senna/Docusate Sodium 1 Tablet 2 TABLET PO ×2 (07:43→22:32)
[2021-10-07] MEDS: LINAGLIPTIN 5 MG TABLET PO (07:44)
[2021-10-07] MEDS: TBO-FILGRASTIM 300 MCG/0.5 ML ML SC (10:29)
--- NOTE | 2021-10-07 11:46 | PN.HOSP_ITS ---
Subjective Subjective Follow-up for neutropenic fever. No fever. BP normal. No hypoxia or tachypnea. Objective Data Objective Data Vital Signs: Vital Signs Temp Pulse Resp BP Pulse Ox O2 Del Method 97.8 F 83 16 122/75 H 96 Room Air 10/07/21 09:55 10/07/21 09:55 10/07/21 09:55 10/07/21 09:55 10/07/21 09:55 10/07/21 09:55 Oxygen Delivery Method Room Air Weight: 211 lb 13.828 oz Body Mass Index (BMI) 29.1 Intake & Output: Intake and Output for Last 24 Hours 10/05/21 10/06/21 10/07/21 23:59 23:59 23:59 Intake Total 1836.67 / 2636.67 3480 / 3480 707 / 707 Balance 1836.67 / 2636.67 3480 / 3480 707 / 707 Medical Nutrition Assessment Dietitian: Malnutrition Criteria Met Start: 10/05/21 15:32 Freq: Status: Active Protocol: Document 10/05/21 15:35 ELO (Rec: 10/05/21 15:35 ELO [id number]) Nutrition Malnutrition Evidence of Malnutrition Exists Yes Malnutrition (severe): Chronic Evidenced By Suboptimal Energy Intake ( Severe),Weight Loss (Severe) Clinical Problem Chronic Disease or Condition Related Malnutrition Etiology related to cancer tx and inability to consume adequate nutrition to meet est nutritional needs Signs/Symptoms as evidenced by <50% po intake and wt loss of 13.8% wt loss in past six weeks Status Active Problem Recommendation Dietitian Recommendations/Changes Will liberalize diet to Regular d/t s/s of malnutrition Will provide 8 oz glucerna shake smoothie w/ Breakfast, 4 oz glucerna shake w/ lunch and dinner Will change pt to select diet so he can choose his own menu Lab / Micro Data Result Diagrams: 10/07/21 05:23 10/07/21 05:23 Labs: Laboratory Results - last 24 hr 10/07/21 05:23: WBC 2.4 L, RBC 2.82 L, Hgb 8.6 L, Hct 25.9 L, MCV 91.8, MCH 30.5, MCHC 33.2, RDW Std Deviation 62.4 H, RDW Coeff of Sunshine 18.8 H, Plt Count 70 L, MPV 10.2, Immature Gran % (Auto) 0.800, Neut % (Auto) 47.9, Lymph % (Auto) 37.6, [place] % (Auto) 9.1, Eos % (Auto) 2.9, Baso % (Auto) 1.7 H, Absolute Neuts (auto) 1.2 L, Absolute Lymphs (auto) 0.91, Nucleated RBC % 0.8, Platelet Estimate MOD DEC, Anisocytosis 1+ 10/07/21 05:23: Sodium 140, Potassium 3.6, Chloride 111 H, Carbon Dioxide 24.0, Anion Gap 5, BUN 13, Creatinine 0.74, Estim Creat Clear Calc 74.25, Est GFR (MDRD) Af Amer 135, Est GFR (MDRD) Non-Af 112, BUN/Creatinine Ratio 17.6, Glucose 107 H, Calcium 8.7, Total Bilirubin 0.40, AST 32, ALT 52, Alkaline Phosphatase 94, Total Protein 5.4 L, Albumin 2.4 L, Globulin 3.0, Albumin/Globulin Ratio 0.8 L 10/07/21 05:23: Phosphorus 2.7 Micro: Microbiology 10/05/21 10:45 Blood Culture (Wb) - Anticubital Left Blood Culture - Preliminary 10/05/21 11:00 Urine, Clean Catch Urine Culture - Final Mixed Gram Positive Organisms Rhythm Strip Rhythm Strip: Sinus Tach Rate: 125 Ectopy: None Physical Exam Narrative Seen and examined. No cough, URI or LRI symptoms. No burning micturition. No abdominal pain General: Alert, Oriented x3, Cooperative HEENT: Atraumatic, PERRLA, EOMI, Normocephalic Oral: Oral mucosa moist. No Gingival or Mucosal Lesions/ Ulcerations Neck: Supple, No JVD, Negative Carotid Bruits Lungs: Air entry diminished in bilateral lung bases. No crepitation/rhonchi Cardiovascular: Sinus rhythm, Normal S1, Normal S2, No murmurs Abdomen: Bowel Sounds Present, Soft, Non Tender, Non-Distended : Right inguinal surgical scar well-healed. No bruise/purulent discharge. Urinary incontinence. No renal angle/suprapubic tenderness. Extremities: No edema, Capillary Refill Less than 3 Seconds Skin: No rashes, No breakdown Musculoskeletal: No Tenderness to Palpation of Joints or Extremities. ROM full Neurological: Cranial nerves II-XII grossly intact, DTR 2+/4. Muscle strength 4/5 at major joints Psych/Mental Status: Normal Affect, Appropriate. Assessment & Plan Assessment/Plan (1) Neutropenic fever: (2) Prostate cancer metastatic to multiple sites: PLAN: Plan This is 71-year-old gentleman with history of prostate cancer admitted for neutropenic fever 1. Neutropenic fever complicated by recent chemotherapy: Patient had chemotherapy for contributive 3 days about a week 09/26?09/28. Patient started on cefepime. Blood cultures x2, urine culture ordered. UA LE 100, WBC 0-5, RBC 50?100 cells, nitrite negative urine bacteria 0. Denies dysuria. Chest x-ray individually reviewed shows no infiltrate. Patient does not have abdominal pain/rash/URI or LRI. Exact focus of infection unclear. 10/06: Continue IV antibiotic. Discussed with his oncologist Dr. Roberto yesterday. 10/07: Preliminary blood culture shows GNR and anaerobic bottle. Urine culture mixed gram-positive organism [id number] colonies, consistent with contamination. Repeat blood culture ordered today. Continue IV cefepime as patient not having fever. 2. Pancytopenia complicated by chemotherapy: WBC count 1.5 thousand, neutrophil manual 73% about 1000. ANC not reported yet. Does not need Granix. H&H 10.7/31%, platelet count 1 23,000. 10/06: WBC count 1.3 thousand, hemoglobin 8.7/26.3%. Platelet count dropped to 61,000. Discontinue pharmacological prophylaxis enoxaparin. No need for BM growth factor supplement. Monitor CBC daily 10/07: WBC slowly improving. Platelet count 70,000. 3. Prostate adenocarcinoma, Duke's score 8 and clinical stage IV, T1 cN0 M1 with single bone metastasis with recent metastasis to right epididymis status post right high inguinal orchiectomy in [facility]: Patient follows Dr. ROBERTO. He was recently admitted in [facility] between ?25 September. 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 10/06: I discussed his cancer history, tumor biology and treatment history with Dr Roberto on 10/05 evening. 4. Diabetes mellitus type 2: Patient on oral hypoglycemic agents. Glucose is 139. 7/30: A1c 6.2% glucose 156. 5. Electrolyte abnormality: Magnesium 1.6 low normal, phosphorus 1.9. Magnesium and phosphorus replaced 7. Other comorbidities include hypertension, diverticulosis, history of kidney stones: Well-controlled. BP 109/65. VT prophylaxis: High risk. Lovenox 40 m subcu daily. Bilateral SCDs Clinical Impression(s) from Imaging Studies Chest X-Ray 10/05/21 11:10 IMPRESSION: Lungs are clear. Electronically Signed: Taran Bowers MD at 11:22 EDT , Charges/Coding Visit Charges Inpatient E&M: 04264 Subs Hosp L2
[2021-10-07] MEDS: 0.9% Saline Lock 10 ML Syringe IV (22:31)
[2021-10-08] MEDS: Acetaminophen 325 MG Tablet 650 MG PO ×3 (01:44→13:25)
[2021-10-08 02:15] VITALS: BP 127/75; PULSE 84; RESP 18; TEMP 36.7; O2SAT 96
[2021-10-08 06:02] VITALS: BP 129/74; PULSE 83
[2021-10-08 06:12] LABS: Hematocrit 27.4 % (40-54); Hemoglobin 9.1 g/dL (13.0-16.5); Mean Corp Hgb Conc 33.2 g/dL (32-36); Mean Corpuscular Hgb 30.6 pg (27.0-32.0); Mean Corpuscular Volume 92.3 fL (80-94); Mean Platelet Vol. 10.1 fl (6.2-12.0); POSITIVE COUNT YES; POSITIVE MORPHOLOGY YES; Platelet Count 91 K/mm3 (150-450); RBC Distribution Width CV 18.7 % (11.6-14.6); RBC Distribution Width SD 61.8 fl (35.1-43.9); Red Blood Count 2.97 M/mm3 (4.6-6.2); White Blood Count 4.8 K/mm3 (4.4-11.0)
[2021-10-08 06:25] LABS: Differential Indicated MANUAL DIFF
[2021-10-08 06:38] LABS: Anisocytosis 2+; Platelet Estimate MOD DEC (ADEQ)
[2021-10-08 06:41] LABS: ALB/GLOB Ratio 0.9 RATIO (0.9-2.4); AST(SGOT) 24 U/L (15-37); Absolute Lymphocyte Count 1.72 X10^3/uL (0.83-4.51); Absolute Neutrophil Count 2.4 X10^3/uL (2.0-7.7); Alanine Aminotransfer ALT/SGPT 51 U/L (16-61); Albumin, Serum 2.6 g/dL (3.2-5.0); Alkaline Phosphatase 103 U/L (45-117); Anion Gap 5 (5-15); BUN 15 mg/dL (7-18); BUN/Creat Ratio 20.2 RATIO (10-20); Calcium,Total 9.2 mg/dL (8.5-10.1); Chloride 107 mmol/L (98-107); Creatinine, Serum 0.74 mg/dL (0.70-1.30); EST Glomerular Filtration Rate 111 mL/min (>60); Eosinophil 3 % (0-5); Est Glom Filt Rate - Afr Amer 134 mL/min (>60); Estimated Creatinine Clearance 74.25 ml/min; Glucose 122 mg/dL (74-106); Lymphocyte 36 % (19-41); Monocyte 7 % (0-10); Myelocyte 3 % (0-0); Neutrophil-Band 11 % (0-5); Neutrophil-Segmented 40 % (47-70); Potassium 3.8 mmol/L (3.5-5.1); Protein, Total 5.6 g/dL (6.4-8.2); Sodium Level 138 mmol/L (136-145); Total Cells Counted 100 (MANUAL DIFF)
[2021-10-08] MEDS: Potassium Chloride Oral Tablet 20 MEQ 40 MEQ PO (07:49)
[2021-10-08] MEDS: LINAGLIPTIN 5 MG TABLET PO (07:50)
[2021-10-08] MEDS: Senna/Docusate Sodium 1 Tablet 2 TABLET PO (07:50)
[2021-10-08] MEDS: Finasteride 5 MG Tablet PO (07:51)
[2021-10-08] MEDS: glipiZIDE 5 MG Tablet PO (07:51)
[2021-10-08] MEDS: amLODIPine 5 MG Tablet PO (07:52)
[2021-10-08 08:09] VITALS: BP 132/77; PULSE 81; RESP 18; TEMP 36.6; O2SAT 98
--- NOTE | 2021-10-08 10:38 | DCINST_ITS ---
Discharge Instructions Diet Discharge Diet: 1800 Calorie Control Diet Activity Discharge Activity: Return to Normal Activity Weight Bearing Status: Weight bearing as tolerated Dressing / Incision Call your doctor if you observe: Fever of 101 or Higher, Coldness, Increased Pain, Numbness or Tingling, Change in Color, Inability to urinate, Inability to have a bowel movement, Shortness of breath, Dizziness, Fainting spells, Swelling in the ankles, Chest pain, Prolonged hiccupping, Increased palpitations (irregular heartbeat), Calf discomfort and Uncontrolled pain Follow Up Care Test Results: Test results from this visit will be discussed in further detail at your follow- up appointment, if applicable. Discharge Plan Admission Admit Date/Time: 10/05/21 12:16 Primary Reason for Your Visit: Neutropenic fever with bacteremia Attending Provider: Raza Gardner Primary Care Provider: Christopher Kapadia Instructions Additional Instructions / Restrictions: Lactobacillus, probiotic, 1 TAB Twice daily by mouth for 10 days. Its available Over the counter. Discharge Orders/Prescriptions Prescriptions: New amoxicillin-pot clavulanate 875-125 mg tablet 1 tab PO BID Qty: 14 0RF Continued hydralazine 10 mg Tablet 20 mg PO TID amlodipine 5 mg Tablet 5 mg PO DAILY docusate sodium [Stool Softener] 100 mg Capsule 100 mg PO BID finasteride 5 mg Tablet 5 mg PO DAILY glipizide 5 mg Tablet 5 mg PO DAILY senna 8.6 mg Capsule 17.2 mg PO DAILY sitagliptin 100 mg Tablet 100 mg PO DAILY hydrocodone-acetaminophen 5-325 mg Tablet 1 tab PO Q8H PRN (Reason: Pain) Referrals / Follow Up: Chacho Ferrari MD [Med Staff - Active Staff] - Within 2 Weeks Christopher Kapadia MD [Primary Care Provider] - In 1 Week Disposition Disposition (needs filled in before D/C Order can be placed): Home, Self Care
--- NOTE | 2021-10-08 11:45 | DS.PCM_ITS ---
Providers Date of Admission: 10/05/21 Date of Discharge: 10/08/21 Primary Care Physician: Dr. Christopher Kapadia MD Reason For Visit: NEUTROPENIC FEVER Diagnosis Discharge Diagnosis (1) Neutropenic fever: Status: Acute Code(s): D70.9 - Neutropenia, unspecified; R50.81 - Fever presenting with conditions classified elsewhere (2) Prostate cancer metastatic to multiple sites: Status: Acute Code(s): C61 - Malignant neoplasm of prostate Medications at Discharge Home Medications amlodipine 5 mg tablet 5 mg PO DAILY htn 10/05/21 docusate sodium 100 mg capsule (Stool Softener) 100 mg PO BID Check with primary doctor 10/05/21 finasteride 5 mg tablet 5 mg PO DAILY Check with primary doctor 10/05/21 glipizide 5 mg tablet 5 mg PO DAILY Check with primary doctor 10/05/21 hydralazine 10 mg tablet 20 mg PO TID Check with primary doctor 10/05/21 hydrocodone-acetaminophen 5-325mg 5mg-325mg 1 tab PO Q8H PRN Pain 10/05/21 sennosides 8.6 mg capsule (senna) 17.2 mg PO DAILY Check with primary doctor 10/05/21 sitagliptin 100 mg tablet 100 mg PO DAILY Check with primary doctor 10/05/21 amoxicillin 875 mg-potassium clavulanate 125 mg tablet 1 tab PO BID #14 tabs 10/08/21 Hospital Course Summary of Care Provided Hospital Course: This is 71-year-old gentleman with history of prostate cancer admitted for neutropenic fever, T 102.7 Fahrenheit with chills on day of admission. 1. Neutropenic fever complicated by recent chemotherapy: Patient had chemotherapy for contributive 3 days about a week 09/26?09/28. Patient started on cefepime. Blood cultures x2, urine culture ordered. UA LE 100, WBC 0-5, RBC 50?100 cells, nitrite negative urine bacteria 0. Denies dysuria. Chest x-ray individually reviewed shows no infiltrate. Patient does not have abdominal pain/rash/URI or LRI. Exact focus of infection unclear. 10/06: Continue IV antibiotic. Discussed with his oncologist Dr. Roberto yesterday. 10/07: Preliminary blood culture shows GNR and anaerobic bottle. Urine culture mixed gram-positive organism [id number] colonies, consistent with contamination. Repeat blood culture ordered today. Continue IV cefepime as patient not having fever. 10/08: I called micro lab to 3 times, prelim blood culture shows anaerobic gram- negative cande. Final identification will not be possible until tomorrow morning. Patient wants to go home therefore discharged on Augmentin 875 mg twice daily for 7 more days. Patient did not had fever during hospital course. Advised probiotic for 10 days 2. Pancytopenia complicated by chemotherapy: WBC count 1.5 thousand, neutrophil manual 73% about 1000. ANC not reported yet. Does not need Granix. H&H 10.7/31%, platelet count 1 23,000. 10/06: WBC count 1.3 thousand, hemoglobin 8.7/26.3%. Platelet count dropped to 61,000. Discontinue pharmacological prophylaxis enoxaparin. No need for BM growth factor supplement. Monitor CBC daily 10/07: WBC slowly improving. Platelet count 70,000. 3. Prostate adenocarcinoma, Cloverdale's score 8 and clinical stage IV, T1 cN0 M1 with single bone metastasis with recent metastasis to right epididymis status post right high inguinal orchiectomy in [facility]: Patient follows Dr. ROBERTO. He was recently admitted in [facility] between ?25 September. 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 10/06: I discussed his cancer history, tumor biology and treatment history with Dr Roberto on 10/05 evening. 4. Diabetes mellitus type 2: Patient on oral hypoglycemic agents. Glucose is 139. 10/06: A1c 6.2% glucose 156. 5. Electrolyte abnormality: Magnesium 1.6 low normal, phosphorus 1.9. Magnesium and phosphorus replaced 10/08: Serum magnesium 1.7. Phosphorus 2.7. Hypomagnesemia and hypophosphatemia corrected. 7. Other comorbidities include hypertension, diverticulosis, history of kidney stones: Well-controlled. BP 109/65. VT prophylaxis: High risk. Lovenox 40 m subcu daily. Bilateral SCDs Discharge medication reconciliation done. Discharge follow-up instructions completed. Discharge process discussed with the patient and all questions were answered to patient's satisfaction. Total time spent, exact 35 minutes on discharge meds reconciliation, examination, coordination of care with nurses and ancillary staff, review of imaging and blood test and discussion with the patient on follow-up ins tructions. Clinical Impression(s) from Imaging Studies Chest X-Ray 10/05/21 11:10 IMPRESSION: Lungs are clear. Electronically Signed: Taran Bowers MD at 11:22 EDT , Physical Exam Narrative Seen and examined. No cough, URI or LRI symptoms. No burning micturition. No abdominal pain. No fever, last Tmax 99.7 F on 10/06. General: Alert, Oriented x3, Cooperative HEENT: Atraumatic, PERRLA, EOMI, Normocephalic Oral: Oral mucosa moist. No Gingival or Mucosal Lesions/ Ulcerations Neck: Supple, No JVD, Negative Carotid Bruits Lungs: Air entry diminished in bilateral lung bases. No crepitation/rhonchi Cardiovascular: Sinus rhythm, Normal S1, Normal S2, No murmurs Abdomen: Bowel Sounds Present, Soft, Non Tender, Non-Distended : Right inguinal surgical scar well-healed. No bruise/purulent discharge. Chronic urinary incontinence. No renal angle/suprapubic tenderness. Extremities: No edema, Capillary Refill Less than 3 Seconds Skin: No rashes, No breakdown Musculoskeletal: No Tenderness to Palpation of Joints or Extremities. ROM full Neurological: Cranial nerves II-XII grossly intact, DTR 2+/4. Muscle strength 4/5 at major joints Psych/Mental Status: Normal Affect, Appropriate. 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 Weight / BMI Weight Weight: 211 lb 13.828 oz Body Mass Index (BMI) 29.1 ABG / Lab / Microbiology Data Result Diagrams: 10/08/21 05:38 10/08/21 05:38 Laboratory: Laboratory Results - last 24 hr 10/08/21 05:38: WBC 4.8, RBC 2.97 L, Hgb 9.1 L, Hct 27.4 L, MCV 92.3, MCH 30.6, MCHC 33.2, RDW Std Deviation 61.8 H, RDW Coeff of Sunshine 18.7 H, Plt Count 91 L, MPV 10.1, Neut % (Auto) Not Reportable, Absolute Neuts (auto) 2.4, Absolute Lymphs (auto) 1.72, Total Counted 100, Neutrophils % (Manual) 40 L, Band Neutrophils % 11 H, Lymphocytes % (Manual) 36, Monocytes % (Manual) 7, Eosin ophils % (Manual) 3, Myelocytes % 3 H, Diff Path Review May foll, Platelet Es timate MOD DEC, Anisocytosis 2+ 10/08/21 05:38: Sodium 138, Potassium 3.8, Chloride 107, Carbon Dioxide 26.0, Anion Gap 5, BUN 15, Creatinine 0.74, Estim Creat Clear Calc 74.25, Est GFR (MDRD) Af Amer 134, Est GFR (MDRD) Non-Af 111, BUN/Creatinine Ratio 20.2 H, Glucose 122 H, Calcium 9.2, Total Bilirubin 0.50, AST 24, ALT 51, Alkaline Phosphatase 103, Total Protein 5.6 L, Albumin 2.6 L, Globulin 3.0, Albumin/Globulin Ratio 0.9 Microbiology: Microbiology 10/05/21 10:50 Blood Culture (Wb) - Right Forearm Blood Culture - Preliminary No growth in 48 hours. 10/05/21 10:45 Blood Culture (Wb) - Anticubital Left Blood Culture - Preliminary 10/05/21 11:00 Urine, Clean Catch Urine Culture - Final Mixed Gram Positive Organisms D/C Instructions Discharge Diet: 1800 Calorie Control Diet Weight Bearing Status: Weight bearing as tolerated Call your doctor if you observe: Fever of 101 or Higher, Coldness, Increased Pain, Numbness or Tingling, Change in Color, Inability to urinate, Inability to have a bowel movement, Shortness of breath, Dizziness, Fainting spells, Swelling in the ankles, Chest pain, Prolonged hiccupping, Increased palpitations (irregular heartbeat), Calf discomfort and Uncontrolled pain Meaningful Use Info Meaningful Use Diagnoses (Choose all that apply): None applicable Discharge Plan Admission Admit Date/Time: 10/05/21 12:16 Primary Reason for Your Visit: Neutropenic fever with bacteremia Attending Provider: Raza Gardner Primary Care Provider: Christopher Kapadia Instructions Additional Instructions / Restrictions: Lactobacillus, probiotic, 1 TAB Twice daily by mouth for 10 days. Its available Over the counter. Discharge Orders/Prescriptions Prescriptions: New amoxicillin-pot clavulanate 875-125 mg tablet 1 tab PO BID Qty: 14 0RF Continued hydralazine 10 mg Tablet 20 mg PO TID amlodipine 5 mg Tablet 5 mg PO DAILY docusate sodium [Stool Softener] 100 mg Capsule 100 mg PO BID finasteride 5 mg Tablet 5 mg PO DAILY glipizide 5 mg Tablet 5 mg PO DAILY senna 8.6 mg Capsule 17.2 mg PO DAILY sitagliptin 100 mg Tablet 100 mg PO DAILY hydrocodone-acetaminophen 5-325 mg Tablet 1 tab PO Q8H PRN (Reason: Pain) Referrals / Follow Up: Chacho Roberto MD [Med Staff - Active Staff] - Within 2 Weeks Christopher Kapadia MD [Primary Care Provider] - In 1 Week Disposition Disposition (needs filled in before D/C Order can be placed): Home, Self Care Charges/Coding Visit Charges Inpatient E&M: 09924 Disch Hosp
[2021-10-08 12:35] LABS: Pathologist Review Reviewed
[2021-10-08 12:35] LABS: Pathologist Review Reviewed
[2021-10-08 14:00] VITALS: BP 128/70; PULSE 88; RESP 18; TEMP 36.6; O2SAT 97
[2021-10-09 12:26] LABS: Pathologist Review Reviewed
== END 2021-10-08 16:00 | disposition home or self-care (01) | DRG 808 ==
LOC: ED 12:40 → MS3 13:02
PROVIDERS: Family Medicine; Admitting Provider Internal Medicine; Emergency Provider Emergency Medicine; PCP Family Medicine; Visit Provider Internal Medicine
DX: D70.1 Agranulocytosis secondary to cancer chemotherapy (principal); E43 Unspecified severe protein-calorie malnutrition; C79.51 Secondary malignant neoplasm of bone; C79.82 Secondary malignant neoplasm of genital organs; E83.39 Other disorders of phosphorus metabolism; C61 Malignant neoplasm of prostate; E11.9 Type 2 diabetes mellitus without complications; D61.810 Antineoplastic chemotherapy induced pancytopenia; I10 Essential (primary) hypertension; E83.42 Hypomagnesemia; T45.1X5A Adverse effect of antineoplastic and immunosuppressive drugs, initial encounter; R50.81 Fever presenting with conditions classified elsewhere; R32 Unspecified urinary incontinence; Z68.29 Body mass index [BMI] 29.0-29.9, adult; Z79.84 Long term (current) use of oral hypoglycemic drugs; Z79.899 Other long term (current) drug therapy; Z87.891 Personal history of nicotine dependence; Z90.79 Acquired absence of other genital organ(s)
CPT/HCPCS: 36415; 71045; 80053; 81001; 83036; 83605; 83735; 84100; 85025; 85610; 85730; 87040; 87077; 87086; 87088; 93005; 97802; 99284; J7030; J7050; A4216; J1447

== ENCOUNTER 2021-11-05 18:31 | Emergency (ER) | payer MEDICARE, OTHER, SELFPAY ==
[2021-11-05 18:34] VITALS: BP 124/65; PULSE 124; RESP 20; TEMP 37.2; O2SAT 99; BMI 29.0
[2021-11-05 19:00] VITALS: TEMP 37.6; O2SAT 97
--- NOTE | 2021-11-05 19:00 | EKG12_ITS ---
Test Reason : FEVER Blood Pressure : / mmHG Vent. Rate : 103 BPM Atrial Rate : 103 BPM P-R Int : 144 ms QRS Dur : 072 ms QT Int : 324 ms P-R-T Axes : 036 -37 048 degrees QTc Int : 424 ms Sinus tachycardia Left axis deviation Abnormal ECG Confirmed by ANIYAH SOSA, JENNIFFER ([id number]), department editor FILIPPO VELASQUEZ ([id number]) on 11/06/2021 8:22:14 AM Referred By: Confirmed By:JENNIFFER DILL MD
--- NOTE | 2021-11-05 19:17 | EX.ED.DYSGE1 ---
HPI History of Present Illness Chief Complaint: Fever Detail of Chief Complaint: Fever 102.8, shaking chills Informant: patient and spouse/S.O. Onset/Context/Timing Onset: Hours Context: Sudden Onset Timing: Continuous Quality: Fever and chills Location: Generalized Current Severity: Mild Maximum Severity: Moderate Worsened by: Unknown Relieved by: Tylenol Associated Symptoms Associated Symptoms: No other symptoms Narrative Narrative: Patient is a 62-year-old male sent in by his oncologist because of fever and shaking chills. Patient has bilateral ureteral stents. He denies headache, visual, ocular auditory symptoms. He denies cardiac or respiratory symptoms. He denies GI symptoms. He has incontinence of his urine due to prior prostate surgery, and radiation treatment. Patient's last chemo was October 16 and . He is scheduled to receive chemo tomorrow. He had outpatient labs today which revealed elevated transaminases. The thought is this is due to his metformin. He does have history of type 2 diabetes. He denies vomiting or diarrhea. He denies rash. Prior similar symptoms: No Recent Illness/Hospitalization: [facility] Medical History Colon polyps Diabetes type 2, controlled Diverticulosis Hard of hearing History of diabetes mellitus Hypertension Immunocompromised patient Kidney stones Marijuana use Pancytopenia Prostate cancer Prostate cancer metastatic to multiple sites Small cell carcinoma of prostate Snoring Tinnitus of both ears Wrist fracture, left Home Medications amlodipine 5 mg tablet 5 mg PO DAILY htn 10/05/21 [History Last Taken 10/05/21] docusate sodium 100 mg capsule (Stool Softener) 100 mg PO BID PRN Constipation 10/05/21 [History Last Taken 10/05/21] finasteride 5 mg tablet 5 mg PO DAILY Check with primary doctor 10/05/21 [History Last Taken 10/05/21] hydralazine 10 mg tablet 20 mg PO TID Check with primary doctor 10/05/21 [History Last Taken 10/05/21] hydrocodone-acetaminophen 5-325mg 5mg-325mg 1 tab PO Q8H PRN Pain 10/05/21 [History Last Taken Unknown] sennosides 8.6 mg capsule (senna) 17.2 mg PO DAILY Check with primary doctor 10/05/21 [History Last Taken 10/05/21] sitagliptin 100 mg tablet 100 mg PO DAILY Check with primary doctor 10/05/21 [History Last Taken 10/05/21] oxybutynin chloride 10 mg tablet,extended release 24 hr 10 mg PO DAILY 11/05/21 [History Last Taken Unknown] Allergy/AdvReac Type Severity Reaction Status Date / Time diphenhydramine Allergy CONFUSION Verified 11/05/21 18:33 [From Benadryl] Social History (Updated 11/05/21 @ 19:[address] Harmeet Rush MD) household members: spouse Smoking Status: Former smoker substance use type: does not use ROS ROS ED Constitutional Constitutional ED: Reports chills, fever(s) and sweats; Denies weight loss Eyes Eyes: Denies blurry vision, change in vision or diplopia ENT ENT ED: Denies ear pain, rhinorrhea or sore throat Cardiovascular Cardiovascular: Denies chest pain, orthopnea, palpitations, paroxysmal nocturnal dyspnea or racing heartbeat Respiratory/Chest Respiratory/Chest: Denies cough, dyspnea, dyspnea on exertion, orthopnea or paroxysmal nocturnal dyspnea Gastrointestinal Gastrointestinal: Denies abdominal pain, diarrhea, melena, nausea or vomiting Genitourinary Genitourinary ED: Denies dysuria, hematuria or urinary frequency Musculoskeletal Musculoskeletal: Denies arthralgias, back pain, myalgias or neck pain Integumentary Denies abscess, Abrasions or rash Neurologic Neurologic: Denies headache(s), paresthesias or weakness Endocrine Endocrinology: Denies cold intolerance or heat intolerance Hematologic/Lymphatic Hematologic/Lymphatic: Reports systems reviewed and no addt'l complaints, except as documented EXAM Physical Exam Const Vital Signs: 11/05/21 18:34 11/05/21 19:00 11/05/21 19:00 Temperature 99 F Temperature Source Temporal Pulse Rate 124 H Respiratory Rate 20 H Respiratory Effort Normal Non-Labored Respiratory Pattern Normal Blood Pressure 124/65 H Blood Pressure Mean 84 Pulse Ox 99 97 Oxygen Delivery Method Room Air Room Air 11/05/21 19:37 11/05/21 19:00 Temperature 99.6 F H 99.6 F H Temperature Source Oral Oral Pulse Rate 102 H Respiratory Rate 19 H Respiratory Effort Respiratory Pattern Blood Pressure 138/74 H Blood Pressure Mean 95 Pulse Ox 95 Oxygen Delivery Method Room Air Positive well nourished and well developed; Negative for obese, cachectic, contractures or unkempt General Appearance ED: well developed and NAD; Negative for unkempt, cachectic, contractures, cyanotic or diaphoretic Nutritional Appearance: Negative for cachectic or obese HEENT Reports dry mucous membranes HEENT Narrative: Ears normal. Patient has hearing aids. Nares patent. Posterior pharynx out erythema or exudate. Uvula midline. No deviation tongue with protrusion. Mouth ED: Yes dry mucous membranes Mouth: dry mucous membranes Eyes PERRL and EOMs intact bilaterally General Eye ED: Negative for pale conjunctiva or scleral icterus Neck no lymphadenopathy, supple and no JVD Chest Wall inspection of chest normal and palpation of chest normal Resp normal respiratory effort and clear to auscultation bilaterally Cardio regular rhythm, S1 normal heart sound, S2 normal heart sound and no murmurs Rate: tachycardic GI normal to inspection, nondistended, normoactive bowel sounds Back/Spine no CVA tenderness Extremity normal to inspection General Extremety ED: Negative for edema or tenderness General Extremity: Negative for edema Neuro oriented x3, CN's II-XII intact bilaterally and no sensory deficits noted Motor Exam: strength 5/5 throughout Psych mental status grossly normal Appearance: Negative for unkempt Skin no rashes or lesions noted and no wounds General Skin Exam: Negative for jaundice MDM MDM MDM Narrative Medical decision making narrative: Patient presents with documented fever and shaking chills. With history of bilateral ureteral stents concerned patient may have urinary tract infection. Sepsis work-up was initiated. There is no obvious source at this time. Lab Data Attestation: I reviewed the patient's lab results. Lab results narrative: White count is elevated at 19.6 thousand with shift. There is no bandemia. Patient is anemic with an H&H 9.6 and 28.9. Coags normal. Comprehensive metabolic panel is remarkable for blood sugar of 245 with a normal CO2 and anion gap. BUN and creatinine are slightly elevated 19 and 1.11. GFR is 70. AST and ALT are elevated to 35 and 271 respectively. Alkaline phosphatase elevated 211. Albumin is low, 3.1 urine reveals pyuria without bacteriuria. This could be due to the stents. Case was discussed with Dr. Williamson who called in prior to patient's arrival. He requested he receive a dose of levofloxacin before going home. He states Dr. Ferrari will see him tomorrow and determine if he needs to continue antibiotics. Labs: Laboratory Results - last 24 hr 11/05/21 11/05/21 11/05/21 19:20 19:20 19:20 WBC 19.6 H RBC 3.00 L Hgb 9.6 L Hct 28.9 L MCV 96.3 H MCH 32.0 MCHC 33.2 RDW Std Deviation 74.5 H RDW Coeff of Sunshine 21.5 H Plt Count 404 MPV 9.1 Immature Gran % (Auto) 3.500 H Neut % (Auto) 84.0 H Lymph % (Auto) 3.8 L Logan % (Auto) 6.5 Eos % (Auto) 1.7 Baso % (Auto) 0.5 Absolute Neuts (auto) 16.5 H Absolute Lymphs (auto) 0.75 L Nucleated RBC % 0 Platelet Estimate ADEQUATE RBC Morphology N CHROM Anisocytosis 1+ Macrocytosis 1+ PT 14.3 INR 1.1 APTT 29.1 Sodium 134 L Potassium 4.4 Chloride 103 Carbon Dioxide 22.0 Anion Gap 9 BUN 19 H Creatinine 1.11 Estim Creat Clear Calc 66.90 Est GFR (MDRD) Af Amer 84 Est GFR (MDRD) Non-Af 70 BUN/Creatinine Ratio 17.1 Glucose 245 H Lactic Acid Calcium 8.9 Total Bilirubin 1.10 H AST 235 H ALT 271 H Alkaline Phosphatase 211 H Total Protein 6.2 L Albumin 3.1 L Globulin 3.1 Albumin/Globulin Ratio 1.0 Urine Color Urine Clarity Urine pH Ur Specific [place] Urine Protein Urine Glucose (UA) Urine Ketones Urine Occult Blood Urine Nitrite Urine Bilirubin Urine Urobilinogen Ur Leukocyte Esterase Urine RBC Urine WBC Ur Squamous Epith Cells Urine Bacteria Urine Mucus 11/05/21 11/05/21 19:20 19:32 WBC RBC Hgb Hct MCV MCH MCHC RDW Std Deviation RDW Coeff of Sunshine Plt Count MPV Immature Gran % (Auto) Neut % (Auto) Lymph % (Auto) Logan % (Auto) Eos % (Auto) Baso % (Auto) Absolute Neuts (auto) Absolute Lymphs (auto) Nucleated RBC % Platelet Estimate RBC Morphology Anisocytosis Macrocytosis PT INR APTT Sodium Potassium Chloride Carbon Dioxide Anion Gap BUN Creatinine Estim Creat Clear Calc Est GFR (MDRD) Af Amer Est GFR (MDRD) Non-Af BUN/Creatinine Ratio Glucose Lactic Acid 1.5 Calcium Total Bilirubin AST ALT Alkaline Phosphatase Total Protein Albumin Globulin Albumin/Globulin Ratio Urine Color Red Urine Clarity Turbid Urine pH 6.5 Ur Specific [place] 1.010 Urine Protein 100 H Urine Glucose (UA) 50 H Urine Ketones 5 H Urine Occult Blood 250 H Urine Nitrite Negative Urine Bilirubin Negative Urine Urobilinogen 4 H Ur Leukocyte Esterase 100 H Urine RBC > 100 SEEN Urine WBC 10-25 SEEN Ur Squamous Epith Cells 0-5 SEEN Urine Bacteria 0 SEEN Urine Mucus 0 SEEN Radiography Chest X-Ray - ED: 2 View and Read by ED Physician (2 view chest x-ray was independently reviewed and interpreted by vt at 2004. There is minimal chronic changes. Osseous structures unremarkable. Cardiac silhouette and size normal. Perihilar regions unremarkable.) Diagnostic Testing: Clinical Impression(s) from Imaging Studies Chest X-Ray 11/05/21 19:35 IMPRESSION: No acute cardiopulmonary process. Electronically Signed: Shireen Merrill MD at 20:09 EDT Reading Location ID and State: [facility] / [place] Tel , Service support , EKG Initial EKG: Attestation: I personally reviewed and interpreted this EKG as follows: Interpretation: Sinus Tachycardia (Ventricular rate is 103. L[place] to left. [place] interval is 144 ms. Cures duration of 80 ms. QT duration 324 ms.) Discharge Plan Triage Chief Complaint: Fever ED Provider: Harmeet Rush Dx/Rx/DC Orders Clinical Impression: Fever of unknown origin, Leukocytosis, Shaking chills Instructions: ED FUO Adult Prescriptions: No Action hydralazine 10 mg Tablet 20 mg PO TID amlodipine 5 mg Tablet 5 mg PO DAILY docusate sodium [Stool Softener] 100 mg Capsule 100 mg PO BID PRN (Reason: Constipation) finasteride 5 mg Tablet 5 mg PO DAILY senna 8.6 mg Capsule 17.2 mg PO DAILY sitagliptin 100 mg Tablet 100 mg PO DAILY hydrocodone-acetaminophen 5-325 mg Tablet 1 tab PO Q8H PRN (Reason: Pain) oxybutynin chloride 10 mg tablet extended release 24hr 10 mg PO DAILY Primary Care Provider: Christopher Kapadia Referrals: Chacho Ferrari MD [Med Staff - Active Staff] - Keep Yessenia appointment Christopher Kapadia MD [Primary Care Provider] - Disposition Disposition: Home, Self Care
[2021-11-05 19:32] LABS: Absolute Lymphocyte Count 0.75 X10^3/uL (0.83-4.51); Absolute Neutrophil Count 16.5 X10^3/uL (2.0-7.7); Basophil# 0.09 X10^3/uL; Basophil% 0.5 % (0-1); Eosinophil# 0.33 X10^3/uL; Eosinophils% 1.7 % (0-5); Hematocrit 28.9 % (40-54); Hemoglobin 9.6 g/dL (13.0-16.5); Lymphocyte # 0.75 X10^3/ul (0.83-4.51); Lymphocyte % 3.8 % (19-41); Mean Corp Hgb Conc 33.2 g/dL (32-36); Mean Corpuscular Volume 96.3 fL (80-94); Mean Platelet Vol. 9.1 fl (6.2-12.0); Monocyte# 1.28 X10^3/uL; Monocyte% 6.5 % (0-10); NRBC Flagged by Analyzer 0 % (0-5); Neutrophil # 16.48 X10^3/uL (2.7-7.7); POSITIVE MORPHOLOGY YES; Platelet Count 404 K/mm3 (150-450); RBC Distribution Width CV 21.5 % (11.6-14.6); RBC Distribution Width SD 74.5 fl (35.1-43.9); White Blood Count 19.6 K/mm3 (4.4-11.0)
--- NOTE | 2021-11-05 19:35 | RAD_ITS ---
STUDY: X-RAY CHEST REASON FOR EXAM: Male, 71 years old. Fever and chills TECHNIQUE: Frontal and lateral views of the chest. COMPARISON: 10/05/2021 FINDINGS: The lungs are clear and expanded. There is no demonstrated pleural abnormality. Normal size heart. Normal mediastinum and carly. Normal visualized pulmonary arteries. Normal visualized aortic arch and descending thoracic aorta. Normal visualized thoracic spine. Normal visualized ribs, clavicles, and shoulders. There is no demonstrated abnormality of the visualized soft tissue structures of the upper abdomen. RAD/Chest PA and Lateral IMPRESSION: No acute cardiopulmonary process. Electronically Signed: Shireen Merrill MD at 20:09 EDT ,
[2021-11-05 19:36] LABS: Bacteria 0 SEEN /hpf (None Seen); Mucous, Urine 0 SEEN /hpf (<or=2+)
[2021-11-05 19:37] VITALS: BP 138/74; PULSE 102; RESP 19; TEMP 37.6; O2SAT 95
[2021-11-05 19:40] LABS: Color, Urine Red (Yellow); Glucose, Dipstick 50 mg/dl (Normal); Ketone-Dipstick 5 mg/dl (Negative); Leukocyte Esterase-Dipstick 100 /ul (Negative); Nitrite-Dipstick Negative (Negative); Occult Blood-Urine 250 /ul (Negative); Protein-Dipstick 100 mg/dl (Negative); Urine Bilirubin Dipstick Negative (Negative); Urine Clarity Turbid (Clear); Urine Urobilinogen 4 mg/dl (Normal); Urine pH 6.5 (5.0 - 8.0)
[2021-11-05 19:49] LABS: AST(SGOT) 235 U/L (15-37); Alanine Aminotransfer ALT/SGPT 271 U/L (16-61); Albumin, Serum 3.1 g/dL (3.2-5.0); Alkaline Phosphatase 211 U/L (45-117); Anion Gap 9 (5-15); BUN 19 mg/dL (7-18); BUN/Creat Ratio 17.1 RATIO (10-20); Calcium,Total 8.9 mg/dL (8.5-10.1); Chloride 103 mmol/L (98-107); Creatinine, Serum 1.11 mg/dL (0.70-1.30); EST Glomerular Filtration Rate 70 mL/min (>60); Est Glom Filt Rate - Afr Amer 84 mL/min (>60); Globulin 3.1 g/dL (2.2-4.2); Glucose 245 mg/dL (74-106); Potassium 4.4 mmol/L (3.5-5.1); Protein, Total 6.2 g/dL (6.4-8.2); Sodium Level 134 mmol/L (136-145)
[2021-11-05 19:53] LABS: International Normalized Ratio 1.1; Prothrombin Time (Protime)PT. 14.3 SECONDS (11.7-14.9)
[2021-11-05 19:54] LABS: Partial Thromboplast Time 29.1 Seconds (24.1-36.2)
[2021-11-05 19:57] LABS: Lactic Acid 1.5 mmol/L (0.4-1.9)
[2021-11-05 19:59] LABS: Red Blood Cells-Urine > 100 SEEN /hpf (0-5); Squamous Epithelial Cells - UA 0-5 SEEN /hpf (0-5); White Blood Cells 10-25 SEEN /hpf (0-5)
[2021-11-05 20:00] VITALS: BP 126/68; PULSE 97; RESP 19; TEMP 37.5; O2SAT 98
[2021-11-05 20:05] LABS: Differential Indicated SCAN CRITERIA MET
[2021-11-05 20:25] LABS: Platelet Estimate ADEQUATE (ADEQ)
[2021-11-05 20:26] LABS: Anisocytosis 1+; Macrocytosis 1+; Red Cell Morphology N CHROM NORMAL (NORM C&C)
[2021-11-05 21:00] VITALS: BP 110/69; PULSE 93; RESP 16; TEMP 37.6; O2SAT 99
[2021-11-05] MEDS: levoFLOXacin 750 MG Tablet PO (22:09)
[2021-11-05 23:00] VITALS: BP 121/72; PULSE 90; RESP 16; TEMP 37.2; O2SAT 99
[2021-11-06 00:21] VITALS: PULSE 88; RESP 15; O2SAT 97
== END 2021-11-06 00:22 | disposition home or self-care (01) ==
PROVIDERS: Emergency Provider Emergency Medicine; PCP Family Medicine; Visit Provider Emergency Medicine
DX: R50.9 Fever, unspecified (principal); D72.829 Elevated white blood cell count, unspecified; I10 Essential (primary) hypertension; Z79.899 Other long term (current) drug therapy; Z87.891 Personal history of nicotine dependence
CPT/HCPCS: 36415; 71046; 80053; 81001; 83605; 85025; 85610; 85730; 87040; 87086; 87088; 93005; 96365; 96366; 96367; 99285; J7040; J7050; A4216

== ENCOUNTER → 2021-11-26 | Outpatient (CLI) | payer MEDICARE, OTHER, SELFPAY ==
[2021-11-26 11:16] LABS: AST(SGOT) 46 U/L (15-37); Alanine Aminotransfer ALT/SGPT 69 U/L (16-61); Albumin, Serum 3.1 g/dL (3.2-5.0); Alkaline Phosphatase 120 U/L (45-117); Anion Gap 7 (5-15); BUN 14 mg/dL (7-18); BUN/Creat Ratio 14.5 RATIO (10-20); Chloride 106 mmol/L (98-107); Creatinine, Serum 0.97 mg/dL (0.70-1.30); EST Glomerular Filtration Rate 82 mL/min (>60); Est Glom Filt Rate - Afr Amer 99 mL/min (>60); Globulin 3.2 g/dL (2.2-4.2); Glucose 306 mg/dL (74-106); LDH 258 U/L (87-241); Potassium 3.8 mmol/L (3.5-5.1); Protein, Total 6.3 g/dL (6.4-8.2); Sodium Level 139 mmol/L (136-145)
== END | disposition home or self-care (01) ==
LOC: LABSPEC 10:43
PROVIDERS: Visit Provider Nurse Practitioner
DX: C61 Malignant neoplasm of prostate (principal)
CPT/HCPCS: 80053; 83615

== ENCOUNTER 2022-03-18 21:02 | Emergency (ER) | payer MEDICARE, OTHER, SELFPAY ==
[2022-03-18 21:04] VITALS: BP 147/68; PULSE 86; RESP 18; TEMP 36.1; O2SAT 99; BMI 29.8
--- NOTE | 2022-03-18 22:37 | RAD_ITS ---
STUDY: X-RAY - ABDOMEN/PELVIS REASON FOR EXAM: Male, 71 years old. Right flank pain. Bilateral ureteral stents. TECHNIQUE: Two AP supine views of the abdomen and pelvis. COMPARISON: None. FINDINGS: Normal visualized lung bases. There is an unremarkable bowel gas pattern. Air and feces is seen scattered throughout the colon. There is a single distended small bowel loop in the in the lateral left mid abdomen. There is no demonstrated free abdominal air. The visualized liver, spleen and kidneys are grossly normal in size and morphology. Bilateral ureteral stents. No visualized calcifications. Normal soft tissue structures. There are diffuse degenerative changes of the visualized lumbar spine. RAD/Abdomen Single View IMPRESSION: 1. Bilateral ureteral stents in satisfactory position. 2. Nonspecific bowel gas pattern without acute abnormality. Electronically Signed: Eliseo David DO at 23:39 EST ,
--- NOTE | 2022-03-18 23:05 | EX.ED.DYSGE1 ---
HPI History of Present Illness Chief Complaint: Flank Pain Informant: patient Onset/Context/Timing Onset: Today (Several hours ago) Context: Gradual Onset Timing: Continuous Quality: Aching Location: Right low back, kidney Current Severity: Severe Maximum Severity: Severe Worsened by: Nothing Relieved by: Nothing Associated Symptoms Associated Symptoms: Occasional mild nausea but not now Narrative Narrative: Patient has prostate cancer, he states he had bilateral ureteral obstructions and required stents bilaterally. These have been in for some time now, weeks. He sees urology at [facility]. He has a history of kidney stones as well. Several hours ago, he started having pain on his right side that feels like a stone. It is not coming around to his flank or abdomen. Denies any hematuria or new urinary symptoms although since he has had the cancer issues he has been incontinent of urine. That is no different. Denies any fevers, chills, vomiting. Tried to call his urologist but their office was already closed. [facility] Medical History Colon polyps Diabetes type 2, controlled Diverticulosis Hard of hearing History of diabetes mellitus Hypertension Immunocompromised patient Kidney stones Marijuana use Pancytopenia Prostate cancer Prostate cancer metastatic to multiple sites Small cell carcinoma of prostate Snoring Tinnitus of both ears Wrist fracture, left Home Medications amlodipine 5 mg tablet 5 mg PO DAILY htn 10/05/21 [History Last Taken 10/05/21] docusate sodium 100 mg capsule (Stool Softener) 100 mg PO BID PRN Constipation 10/05/21 [History Last Taken 10/05/21] finasteride 5 mg tablet 5 mg PO DAILY Check with primary doctor 10/05/21 [History Last Taken 10/05/21] hydralazine 10 mg tablet 20 mg PO TID Check with primary doctor 10/05/21 [History Last Taken 10/05/21] sennosides 8.6 mg capsule (senna) 17.2 mg PO DAILY Check with primary doctor 10/05/21 [History Last Taken 10/05/21] sitagliptin phosphate 100 mg tablet 100 mg PO DAILY Check with primary doctor 10/05/21 [History Last Taken 10/05/21] oxybutynin chloride 10 mg tablet,extended release 24 hr 10 mg PO DAILY 11/05/21 [History Last Taken Unknown] glimepiride 1 mg tablet 1 mg PO DAILY 03/18/22 [History Last Taken Unknown] tramadol 50 mg tablet 50 mg PO Q4H PRN PRN Pain 03/18/22 [History Last Taken Unknown] oxycodone-acetaminophen 5 mg-325 mg tablet 1 tab PO Q6H PRN PRN Pain 3 days #12 TABLETS 03/19/22 [Rx Last Taken Unknown] Allergy/AdvReac Type Severity Reaction Status Date / Time diphenhydramine AdvReac CONFUSION Verified 03/18/22 23:22 [From Benadryl] Social History household members: spouse Smoking Status: Former smoker substance use type: does not use ROS ROS ED Constitutional Constitutional ED: Denies chills or fever(s) Eyes Eyes: Denies change in vision or diplopia ENT ENT ED: Denies rhinorrhea or sore throat Cardiovascular Cardiovascular: Denies chest pain or palpitations Respiratory/Chest Respiratory/Chest: Denies cough or dyspnea Gastrointestinal Gastrointestinal: Reports constipation and nausea; Denies abdominal pain, diarrhea or vomiting Genitourinary Genitourinary ED: Reports as per HPI, urinary frequency and urinary incontinence; Denies dysuria or hematuria Musculoskeletal Musculoskeletal: Reports back pain; Denies neck pain Integumentary Denies abscess or rash Neurologic Neurologic: Denies headache(s), paresthesias or weakness Psychiatric Psychiatric: Denies anxiety or suicidal thoughts EXAM Physical Exam Const Vital Signs: 03/18/22 21:04 03/18/22 23:22 Temperature 96.9 F L Temperature Source Temporal Pulse Rate 86 Respiratory Rate 18 Respiratory Effort Normal Non-Labored Respiratory Pattern Normal Blood Pressure 147/68 H Blood Pressure Mean 94 Pulse Ox 99 Oxygen Delivery Method Room Air Positive well nourished and well developed General Appearance ED: well developed and NAD HEENT Reports moist mucous membranes normocephalic and atraumatic Eyes PERRL and EOMs intact bilaterally Neck full ROM and supple Resp normal respiratory effort and clear to auscultation bilaterally Cardio regular rate, regular rhythm and no murmurs GI non-tender and non-distended Auscultation: normoactive bowel sounds Palpation: soft Back/Spine General Back: CVA tenderness right and other FROM Extremity normal to inspection General Extremety ED: Negative for edema, pulses abnormal or tenderness General Extremity: Negative for edema or pulses abnormal Neuro oriented x3, CN's II-XII intact bilaterally and no sensory deficits noted Sensorium / Orientation: awake and alert Motor Exam: strength 5/5 throughout Psych mental status grossly normal Skin no rashes or lesions noted and no wounds MDM MDM MDM Narrative Medical decision making narrative: IV was placed patient was given analgesics as well as ondansetron, a urinalysis and a KUB were obtained. KUB 1 view on my interpretation shows good stent placement bilateral ureters, radiology in agreement. Nothing else acute seen. Labs show excellent renal function, microscopic hematuria but no sign of infection, and no leukocytosis. He does have anemia, I reviewed old labs from last year. He is higher today with regards to his hemoglobin/hematocrit. With morphine the patient is feeling much better. He was also acceptable to receive a small dose of Toradol, and we will give him a prescription for some Percocet and discharge him to follow-up with his urologist. Seen that the ureteral stents are in place, I do not think he needs an emergent CT right now. It is possible there is a stone involved, but given all of the above, pain control would be indicated instead of surgical management emergently, until he can follow-up with his urologist tomorrow or later in the week, and he is in agreement with that. Lab Data Attestation: I reviewed the patient's lab results. Labs: Laboratory Results - last 24 hr 03/18/22 03/18/22 03/18/22 23:00 23:00 23:00 WBC 4.8 RBC 3.52 L Hgb 10.6 L Hct 32.5 L MCV 92.3 MCH 30.1 MCHC 32.6 RDW Std Deviation 54.5 H RDW Coeff of Sunshine 16.0 H Plt Count 159 MPV 9.7 Immature Gran % (Auto) 1.200 H Neut % (Auto) 71.6 H Lymph % (Auto) 16.6 L [place] % (Auto) 5.2 Eos % (Auto) 2.5 Baso % (Auto) 2.9 H Absolute Neuts (auto) 3.4 Absolute Lymphs (auto) 0.80 L Nucleated RBC % 0 Differential Comment SCANNED Sodium 136 Potassium 3.9 Chloride 104 Carbon Dioxide 24.0 Anion Gap 8 BUN 19 H Creatinine 0.82 Estim Creat Clear Calc 90.55 Est GFR (MDRD) Af Amer 120 Est GFR (MDRD) Non-Af 99 BUN/Creatinine Ratio 23.3 H Glucose 132 H Calcium 9.1 Urine Color Red Urine Clarity Turbid Urine pH 6.5 Ur Specific [place] 1.015 Urine Protein 500 H Urine Glucose (UA) Normal Urine Ketones 5 H Urine Occult Blood 250 H Urine Nitrite Negative Urine Bilirubin Negative Urine Urobilinogen Normal Ur Leukocyte Esterase 100 H Urine RBC > 100 SEEN Urine WBC 0 SEEN Ur Squamous Epith Cells 0 SEEN Urine Bacteria 0 SEEN Urine Mucus 0 SEEN Radiography Diagnostic Testing: Clinical Impression(s) from Imaging Studies KUB X-Ray 03/18/22 22:37 IMPRESSION: 1. Bilateral ureteral stents in satisfactory position. 2. Nonspecific bowel gas pattern without acute abnormality. Electronically Signed: Eliseo David DO at 23:39 EST Reading Location ID and State: [address] [place] [address] Tel [phone], Service support , Discharge Plan Triage Chief Complaint: Flank Pain ED Provider: Bhavin Deras Dx/Rx/DC Orders Clinical Impression: Renal colic on right side, Ureteral stent present Instructions: ED Kidney Stone w/ Colic Prescriptions: New oxycodone-acetaminophen [oxycodone-acetaminophen] 1 TABLET tablet 1 tab PO Q6H PRN PRN (Reason: Pain) 3 Days Qty: 12 0RF No Action hydralazine 10 mg Tablet 20 mg PO TID amlodipine 5 mg Tablet 5 mg PO DAILY docusate sodium [Stool Softener] 100 mg Capsule 100 mg PO BID PRN (Reason: Constipation) finasteride 5 mg Tablet 5 mg PO DAILY senna 8.6 mg Capsule 17.2 mg PO DAILY sitagliptin phosphate 100 mg Tablet 100 mg PO DAILY oxybutynin chloride 10 mg tablet extended release 24hr 10 mg PO DAILY tramadol 50 mg tablet 50 mg PO Q4H PRN PRN (Reason: Pain) glimepiride 1 mg Tablet 1 mg PO DAILY Primary Care Provider: Christopher Kapadia Referrals: urologist, [facility] [Other] - As soon as possible Christopher Kapadia MD [Primary Care Provider] - Disposition Disposition: Home, Self Care
[2022-03-18] MEDS: Ondansetron 4 MG/2 ML Vial IV (23:10)
[2022-03-18] MEDS: Morphine 4 MG/ML Syringe IV (23:10)
[2022-03-18 23:11] LABS: Bacteria 0 SEEN /hpf (None Seen); Mucous, Urine 0 SEEN /hpf (<or=2+); Squamous Epithelial Cells - UA 0 SEEN /hpf (0-5); White Blood Cells 0 SEEN /hpf (0-5)
[2022-03-18 23:13] LABS: Absolute Neutrophil Count 3.4 X10^3/uL (2.0-7.7); Basophil# 0.14 X10^3/uL; Basophil% 2.9 % (0-1); Eosinophil# 0.12 X10^3/uL; Eosinophils% 2.5 % (0-5); Hematocrit 32.5 % (40-54); Hemoglobin 10.6 g/dL (13.0-16.5); Lymphocyte % 16.6 % (19-41); Mean Corp Hgb Conc 32.6 g/dL (32-36); Mean Corpuscular Hgb 30.1 pg (27.0-32.0); Mean Corpuscular Volume 92.3 fL (80-94); Mean Platelet Vol. 9.7 fl (6.2-12.0); Monocyte# 0.25 X10^3/uL; Monocyte% 5.2 % (0-10); NRBC Flagged by Analyzer 0 % (0-5); Neutrophil # 3.44 X10^3/uL (2.7-7.7); Neutrophil % 71.6 % (47-70); POSITIVE MORPHOLOGY YES; Platelet Count 159 K/mm3 (150-450); RBC Distribution Width SD 54.5 fl (35.1-43.9); Red Blood Count 3.52 M/mm3 (4.6-6.2); White Blood Count 4.8 K/mm3 (4.4-11.0)
[2022-03-18 23:17] LABS: Color, Urine Red (Yellow); Glucose, Dipstick Normal (Normal); Ketone-Dipstick 5 mg/dl (Negative); Leukocyte Esterase-Dipstick 100 /ul (Negative); Nitrite-Dipstick Negative (Negative); Occult Blood-Urine 250 /ul (Negative); Protein-Dipstick 500 mg/dl (Negative); Specific Gravity, Urine 1.015 (1.002-1.030); Urine Bilirubin Dipstick Negative (Negative); Urine Clarity Turbid (Clear); Urine Urobilinogen Normal (Normal); Urine pH 6.5 (5.0 - 8.0)
[2022-03-18 23:23] LABS: Red Blood Cells-Urine > 100 SEEN /hpf (0-5)
[2022-03-18 23:26] LABS: Anion Gap 8 (5-15); BUN 19 mg/dL (7-18); BUN/Creat Ratio 23.3 RATIO (10-20); Calcium,Total 9.1 mg/dL (8.5-10.1); Chloride 104 mmol/L (98-107); Creatinine, Serum 0.82 mg/dL (0.70-1.30); EST Glomerular Filtration Rate 99 mL/min (>60); Est Glom Filt Rate - Afr Amer 120 mL/min (>60); Estimated Creatinine Clearance 90.55 ml/min; Glucose 132 mg/dL (74-106); Potassium 3.9 mmol/L (3.5-5.1); Sodium Level 136 mmol/L (136-145)
[2022-03-19 00:17] LABS: Differential Comment SCANNED; Differential Indicated SCAN CRITERIA MET
[2022-03-19] MEDS: Ketorolac 15 MG/ML Vial 10 MG IV (00:21)
== END 2022-03-19 00:43 | disposition home or self-care (01) ==
PROVIDERS: Emergency Provider Emergency Medicine; PCP Family Medicine; Visit Provider Emergency Medicine
DX: N23 Unspecified renal colic (principal); C61 Malignant neoplasm of prostate; E11.9 Type 2 diabetes mellitus without complications; D64.9 Anemia, unspecified; I10 Essential (primary) hypertension; R31.29 Other microscopic hematuria; Z87.891 Personal history of nicotine dependence; R35.0 Frequency of micturition; R32 Unspecified urinary incontinence; Z96.0 Presence of urogenital implants
CPT/HCPCS: 74018; 80048; 81001; 85025; 96374; 96375; 99283; A4216; J2405

== ENCOUNTER 2022-04-20 10:28 | Emergency (ER) | payer MEDICARE, OTHER, SELFPAY ==
[2022-04-20 10:29] VITALS: BP 166/79; PULSE 89; RESP 18; TEMP 35.8; O2SAT 100; BMI 31.2
--- NOTE | 2022-04-20 11:22 | EDS_ITS ---
HPI History of Present Illness Chief Complaint: Complaint Detail of Chief Complaint: Urinary retention and gross hematuria. Informant: patient and spouse/S.O. Pain Onset: Days Context: Gradual Onset Timing: Continuous Current Severity: Mild Maximum Severity: Mild Narrative Narrative: 72-year-old male history of prostate and bladder cancer with local lymphatic metastasis. Being cared for by [facility] oncology here in [place]. Patient is currently on chemotherapy. Also has a history of diabetes. Has had hematuria since May. Had labs showing an H&H of 10 and 30 on April 19 and a normal BUN and creatinine. Today he is unable to urinate. Passing gross blood. No fever or chills. Prior similar symptoms: Yes Recent Illness/Hospitalization: No PFSH PFS Medical History Colon polyps Diabetes type 2, controlled Diverticulosis Hard of hearing History of diabetes mellitus Hypertension Immunocompromised patient Kidney stones Marijuana use Pancytopenia Prostate cancer Prostate cancer metastatic to multiple sites Small cell carcinoma of prostate Snoring Tinnitus of both ears Wrist fracture, left Home Medications amlodipine 5 mg tablet 5 mg PO DAILY htn 10/05/21 [History Last Taken 10/05/21] docusate sodium 100 mg capsule (Stool Softener) 100 mg PO BID PRN Constipation 10/05/21 [History Last Taken 10/05/21] finasteride 5 mg tablet 5 mg PO DAILY Check with primary doctor 10/05/21 [History Last Taken 10/05/21] hydralazine 10 mg tablet 20 mg PO TID Check with primary doctor 10/05/21 [History Last Taken 10/05/21] sennosides 8.6 mg capsule (senna) 17.2 mg PO DAILY Check with primary doctor 10/05/21 [History Last Taken 10/05/21] sitagliptin phosphate 100 mg tablet 100 mg PO DAILY Check with primary doctor 10/05/21 [History Last Taken 10/05/21] oxybutynin chloride 10 mg tablet,extended release 24 hr 10 mg PO DAILY 11/05/21 [History Last Taken Unknown] glimepiride 1 mg tablet 1 mg PO DAILY 03/18/22 [History Last Taken Unknown] tramadol 50 mg tablet 50 mg PO Q4H PRN PRN Pain 03/18/22 [History Last Taken Unknown] oxycodone-acetaminophen 5 mg-325 mg tablet 1 tab PO Q6H PRN PRN Pain 3 days #12 TABLETS 03/19/22 [Rx Last Taken Unknown] Allergy/AdvReac Type Severity Reaction Status Date / Time diphenhydramine AdvReac CONFUSION Verified 04/20/22 10:31 [From Benadryl] Social History household members: spouse Smoking Status: Former smoker substance use type: does not use ROS ROS ED ROS Narrative Denies recent illness. Review of Systems ROS Unobtainable: Denies due to encephalopathy Constitutional Constitutional ED: Denies chills or fever(s) Eyes Eyes: Denies blurry vision ENT ENT ED: Denies ear pain Cardiovascular Cardiovascular: Denies chest pain Respiratory/Chest Respiratory/Chest: Denies cough Gastrointestinal Gastrointestinal: Denies abdominal pain Genitourinary Genitourinary ED: Reports hematuria; Denies dysuria Musculoskeletal Musculoskeletal: Denies arthralgias Integumentary Denies abscess Neurologic Neurologic: Denies headache(s) Psychiatric Psychiatric: Denies anxiety Endocrine Endocrinology: Denies polydipsia Hematologic/Lymphatic Hematologic/Lymphatic: Denies easy bleeding Allergic/Immunologic Allergic/Immunologic ED: Denies mouth swelling or tongue swelling EXAM Physical Exam Narrative Exam Narrative: 9-year-old male no acute distress. Vital signs stable afebrile. HEENT exam unremarkable. Moist extremities. Lungs clear. Heart regular rhythm. No murmur. Abdomen soft. Nondistended. Normal bowel sounds. No peritoneal signs. Fullness in the suprapubic area. External exam unremarkable. Circumcised male. Moving all 4 extremities. Trace edema on his lower legs. Neurologically is awake and alert. Const Vital Signs: 04/20/22 10:29 Temperature 96.4 F L Temperature Source Temporal Pulse Rate 89 Respiratory Rate 18 Blood Pressure 166/79 H Blood Pressure Mean 108 Pulse Ox 100 Oxygen Delivery Method Room Air Positive well nourished, well developed and obese; Negative for cachectic or unkempt General Appearance ED: well developed and NAD; Negative for unkempt, cachectic or pallor Nutritional Appearance: obese; Negative for cachectic HEENT Reports moist mucous membranes; Denies dry mucous membranes normocephalic and atraumatic; Negative for trauma or tenderness Mouth ED: No dry mucous membranes Mouth: No dry mucous membranes Eyes PERRL and EOMs intact bilaterally General Eye ED: Negative for pale conjunctiva or scleral icterus Neck no lymphadenopathy, supple and no JVD General: Negative for tenderness Resp normal respiratory effort and clear to auscultation bilaterally Effort and Inspection: Negative for retractions Cardio regular rate, regular rhythm, S1 normal heart sound, S2 normal heart sound and no murmurs GI non-tender, non-distended and no masses GI Narrative: Suprapubic fullness. Inspection: Negative for abdominal distention Auscultation: normoactive bowel sounds Palpation: soft; Negative for tender or guarding no CVA tenderness Bladder / Kidney Exam: No CVA tenderness Groin / Perineum Exam: Negative for edema Back/Spine no CVA tenderness General Back: Negative for CVA tenderness Cervical Spine: Negative for cervical spine tenderness Thoracic Spine / Upper Back: Negative for thoracic spinal tenderness Lumbar Spine / Lower Back: Negative for lumbar spinal tenderness Extremity Negative for normal to inspection General Extremety ED: Yes edema General Extremity: edema Neuro oriented x3, moves all extremities and no focal motor deficits Sensorium / Orientation: alert, oriented to person, oriented to place and oriented to time; Negative for orientation impaired, confused, lethargic or stuporous Motor Exam: strength 5/5 throughout Psych mental status grossly normal Appearance: Negative for unkempt Mood & Affect: Negative for depressed Thought Process: normal thought process Thought Content: normal thought content Skin General Skin Exam: Negative for jaundice or pallor Lesions: no lesions Rashes: no rashes MDM MDM MDM Narrative Medical decision making narrative: 72-year-old male with urinary retention. Nurses did a bladder scan it was 543. Over 22 Croatian Hooper catheter placed. Irrigated with a liter. CBC chemistry will be obtained for blood count and kidney function. Urinalysis to evaluate for possible infection. I suspect he is having just gross hematuria causing urinary retention from his known bladder cancer. Repeat exam patient is doing well. He will be discharged home. He has over a liter in his Hooper bag. It is blood-tinged. No significant clots. Does not look infected. Discussed with the patient and family. The nurse attempted a 22 Croatian was unable the next largest size she had was an [address] with a Hooper leg bag. He will follow-up with his [facility] urologist this week. A urine culture will be sent. Lab Data Attestation: I reviewed the patient's lab results. Lab results narrative: CBC shows a white count of 14.2. H&H of 10 and 31.6 which are consistent with the labs he just had done at the [facility]. His hemoglobin at that time was 10.0. Electrolytes unremarkable Frances-V normal BUN of 16 creatinine 0.87 again consistent with his recent BUN and creatinine. Urinalysis shows 10-25 white cells 1+ bacteria. 25-50 red cells. 250 occult blood no nitrites. Culture will be sent. We will hold off on any antibiotic treatment at this time. Labs: Laboratory Results - last 24 hr 04/20/22 04/20/22 04/20/22 12:00 12:00 12:00 WBC 14.2 H RBC 3.41 L Hgb 10.0 L Hct 31.6 L MCV 92.7 MCH 29.3 MCHC 31.6 L RDW Std Deviation 58.7 H RDW Coeff of [place]shine 17.7 H Plt Count 344 MPV 8.7 Immature Gran % (Auto) 0.800 Neut % (Auto) 85.2 H Lymph % (Auto) 6.4 L [place] % (Auto) 6.8 Eos % (Auto) 0.3 Baso % (Auto) 0.5 Absolute Neuts (auto) 12.1 H Absolute Lymphs (auto) 0.90 Nucleated RBC % 0 Sodium 139 Potassium 4.1 Chloride 108 H Carbon Dioxide 26.0 Anion Gap 5 BUN 16 Creatinine 0.87 Estim Creat Clear Calc 84.15 Est GFR (MDRD) Af Amer 111 Est GFR (MDRD) Non-Af 92 BUN/Creatinine Ratio 18.3 Glucose 144 H Calcium 9.1 Urine Color Yellow Urine Clarity Clear Urine pH 7.0 Ur Specific [place] 1.005 Urine Protein 100 H Urine Glucose (UA) Normal Urine Ketones Negative Urine Occult Blood 250 H Urine Nitrite Negative Urine Bilirubin Negative Urine Urobilinogen Normal Ur Leukocyte Esterase 500 H Urine RBC 25-50 SEEN Urine WBC 10-25 SEEN Ur Squamous Epith Cells 0 SEEN Urine Bacteria 1+ Urine Mucus 0 SEEN Discharge Plan Triage Chief Complaint: Complaint ED Provider: Leonard Antunez Dx/Rx/DC Orders Clinical Impression: Acute urinary retention, Gross hematuria, History of bladder cancer Instructions: ED Urinary Retention, Male Prescriptions: No Action hydralazine 10 mg Tablet 20 mg PO TID amlodipine 5 mg Tablet 5 mg PO DAILY docusate sodium [Stool Softener] 100 mg Capsule 100 mg PO BID PRN (Reason: Constipation) finasteride 5 mg Tablet 5 mg PO DAILY senna 8.6 mg Capsule 17.2 mg PO DAILY sitagliptin phosphate 100 mg Tablet 100 mg PO DAILY oxybutynin chloride 10 mg tablet extended release 24hr 10 mg PO DAILY tramadol 50 mg tablet 50 mg PO Q4H PRN PRN (Reason: Pain) glimepiride 1 mg Tablet 1 mg PO DAILY oxycodone-acetaminophen [oxycodone-acetaminophen] 1 TABLET tablet 1 tab PO Q6H PRN PRN (Reason: Pain) 3 Days Qty: 12 0RF Primary Care Provider: Christopher Kapadia Referrals: Christopher Kapadia MD [Primary Care Provider] - Activity Restrictions/Additional Instructions: Call and follow-up with your urologist soon as possible. Plenty of fluids to help wash out the blood in your bladder. We will send a urine culture if that is positive we will follow-up with you and start you on an antibiotic but at this time or not to treat any urinary tract infection. Empty the Hooper leg bag whenever half to three quarters full. Disposition Disposition: Home, Self Care
[2022-04-20 12:04] LABS: Color, Urine Yellow (Yellow); Glucose, Dipstick Normal (Normal); Ketone-Dipstick Negative (Negative); Leukocyte Esterase-Dipstick 500 /ul (Negative); Mucous, Urine 0 SEEN /hpf (<or=2+); Nitrite-Dipstick Negative (Negative); Occult Blood-Urine 250 /ul (Negative); Protein-Dipstick 100 mg/dl (Negative); Specific Gravity, Urine 1.005 (1.002-1.030); Squamous Epithelial Cells - UA 0 SEEN /hpf (0-5); Urine Bilirubin Dipstick Negative (Negative); Urine Clarity Clear (Clear); Urine Urobilinogen Normal (Normal)
[2022-04-20 12:10] LABS: Bacteria 1+ /hpf (None Seen); Red Blood Cells-Urine 25-50 SEEN /hpf (0-5); White Blood Cells 10-25 SEEN /hpf (0-5)
[2022-04-20 12:16] LABS: Absolute Neutrophil Count 12.1 X10^3/uL (2.0-7.7); Basophil# 0.07 X10^3/uL; Basophil% 0.5 % (0-1); Eosinophil# 0.04 X10^3/uL; Eosinophils% 0.3 % (0-5); Hematocrit 31.6 % (40-54); Lymphocyte % 6.4 % (19-41); Mean Corp Hgb Conc 31.6 g/dL (32-36); Mean Corpuscular Hgb 29.3 pg (27.0-32.0); Mean Corpuscular Volume 92.7 fL (80-94); Mean Platelet Vol. 8.7 fl (6.2-12.0); Monocyte# 0.96 X10^3/uL; Monocyte% 6.8 % (0-10); NRBC Flagged by Analyzer 0 % (0-5); Neutrophil # 12.09 X10^3/uL (2.7-7.7); Neutrophil % 85.2 % (47-70); Platelet Count 344 K/mm3 (150-450); RBC Distribution Width CV 17.7 % (11.6-14.6); RBC Distribution Width SD 58.7 fl (35.1-43.9); Red Blood Count 3.41 M/mm3 (4.6-6.2); White Blood Count 14.2 K/mm3 (4.4-11.0)
[2022-04-20 12:30] LABS: Anion Gap 5 (5-15); BUN 16 mg/dL (7-18); BUN/Creat Ratio 18.3 RATIO (10-20); Calcium,Total 9.1 mg/dL (8.5-10.1); Chloride 108 mmol/L (98-107); Creatinine, Serum 0.87 mg/dL (0.70-1.30); EST Glomerular Filtration Rate 92 mL/min (>60); Est Glom Filt Rate - Afr Amer 111 mL/min (>60); Estimated Creatinine Clearance 84.15 ml/min; Glucose 144 mg/dL (74-106); Potassium 4.1 mmol/L (3.5-5.1); Sodium Level 139 mmol/L (136-145)
== END 2022-04-20 13:47 | disposition home or self-care (01) ==
PROVIDERS: Emergency Provider Emergency Medicine; PCP Family Medicine; Visit Provider Emergency Medicine
DX: R31.0 Gross hematuria (principal); E11.9 Type 2 diabetes mellitus without complications; R33.9 Retention of urine, unspecified; Z87.891 Personal history of nicotine dependence; I10 Essential (primary) hypertension; E66.9 Obesity, unspecified; Z85.51 Personal history of malignant neoplasm of bladder; Z85.46 Personal history of malignant neoplasm of prostate
CPT/HCPCS: 51798; 51702; 80048; 81001; 85025; 87086; 99283; A4216

== ENCOUNTER → 2022-06-20 | Outpatient (CLI) | payer MEDICARE, OTHER, SELFPAY ==
[2022-06-20 16:17] LABS: ALB/GLOB Ratio 0.9 RATIO (0.9-2.4); AST(SGOT) 30 U/L (15-37); Alanine Aminotransfer ALT/SGPT 22 U/L (16-61); Albumin, Serum 2.5 g/dL (3.2-5.0); Alkaline Phosphatase 85 U/L (45-117); Anion Gap 5 (5-15); BUN 13 mg/dL (7-18); BUN/Creat Ratio 16.1 RATIO (10-20); Calcium,Total 8.9 mg/dL (8.5-10.1); Chloride 110 mmol/L (98-107); Creatinine, Serum 0.81 mg/dL (0.70-1.30); EST Glomerular Filtration Rate 101 mL/min (>60); Est Glom Filt Rate - Afr Amer 122 mL/min (>60); Globulin 2.8 g/dL (2.2-4.2); Glucose 119 mg/dL (74-106); LDH 271 U/L (87-241); Potassium 3.9 mmol/L (3.5-5.1); Protein, Total 5.3 g/dL (6.4-8.2); Sodium Level 141 mmol/L (136-145)
== END | disposition home or self-care (01) ==
PROVIDERS: PCP Family Medicine
DX: C61 Malignant neoplasm of prostate (principal)
CPT/HCPCS: 80053; 83615

== ENCOUNTER 2022-07-31 06:02 | Emergency (ER) | payer MEDICARE, OTHER, SELFPAY ==
[2022-07-31 06:03] VITALS: BP 143/77; PULSE 72; RESP 15; TEMP 36.2; O2SAT 97; BMI 31.2
--- NOTE | 2022-07-31 06:17 | EX.ED.GUMALE ---
HPI History of Present Illness Chief Complaint: Complaint Detail of Chief Complaint: Urinary retention with history of the same. Informant: patient and spouse/S.O. Pain Onset: Today and Hours Context: Gradual Onset Timing: Continuous Current Severity: Mild Maximum Severity: Mild Narrative Narrative: 72-year-old male history of diabetes, hypertension prostate cancer with metastases. Currently on chemotherapy. Had a prior TURP procedure. He has had ureteral stents before. He had a prior Hooper catheter about a year ago. States he was doing well today has had difficulty urinating since around midnight. Denies any fever. No significant pain. History of chronic hematuria from his prostate surgery. In the prostate cancer. Up until today has been peeing well recently. This began around midnight. Prior similar symptoms: Yes Recent Illness/Hospitalization: No PFSH PFSH Medical History Colon polyps Diabetes type 2, controlled Diverticulosis Hard of hearing History of diabetes mellitus Hypertension Immunocompromised patient Kidney stones Marijuana use Pancytopenia Prostate cancer Prostate cancer metastatic to multiple sites Small cell carcinoma of prostate Snoring Tinnitus of both ears Wrist fracture, left Home Medications amlodipine 5 mg tablet 5 mg PO DAILY htn 10/05/21 [History Last Taken 10/05/21] docusate sodium 100 mg capsule (Stool Softener) 100 mg PO BID PRN Constipation 10/05/21 [History Last Taken 10/05/21] finasteride 5 mg tablet 5 mg PO DAILY Check with primary doctor 10/05/21 [History Last Taken 10/05/21] hydralazine 10 mg tablet 20 mg PO TID Check with primary doctor 10/05/21 [History Last Taken 10/05/21] sennosides 8.6 mg capsule (senna) 17.2 mg PO DAILY Check with primary doctor 10/05/21 [History Last Taken 10/05/21] sitagliptin phosphate 100 mg tablet 100 mg PO DAILY Check with primary doctor 10/05/21 [History Last Taken 10/05/21] oxybutynin chloride 10 mg tablet,extended release 24 hr 10 mg PO DAILY 11/05/21 [History Last Taken Unknown] glimepiride 1 mg tablet 1 mg PO DAILY 03/18/22 [History Last Taken Unknown] tramadol 50 mg tablet 50 mg PO Q4H PRN PRN Pain 03/18/22 [History Last Taken Unknown] oxycodone-acetaminophen 5 mg-325 mg tablet 1 tab PO Q6H PRN PRN Pain 3 days #12 TABLETS 03/19/22 [Rx Last Taken Unknown] Allergy/AdvReac Type Severity Reaction Status Date / Time diphenhydramine AdvReac CONFUSION Verified 07/31/22 06:09 [From Benadryl] Social History household members: spouse Smoking Status: Former smoker substance use type: does not use ROS ROS ED ROS Narrative Urinary retention. No recent illness. Review of Systems ROS Unobtainable: Denies due to encephalopathy Constitutional Constitutional ED: Denies chills or fever(s) Eyes Eyes: Denies blurry vision ENT ENT ED: Denies ear pain Cardiovascular Cardiovascular: Denies chest pain Respiratory/Chest Respiratory/Chest: Denies cough or dyspnea Gastrointestinal Gastrointestinal: Denies abdominal pain, constipation, diarrhea, melena, nausea or vomiting Genitourinary Genitourinary ED: Reports hematuria; Denies dysuria Musculoskeletal Musculoskeletal: Denies arthralgias Integumentary Denies abscess Neurologic Neurologic: Denies headache(s) Psychiatric Psychiatric: Denies anxiety Endocrine Endocrinology: Denies polydipsia Hematologic/Lymphatic Hematologic/Lymphatic: Denies easy bleeding or easy bruising Allergic/Immunologic Allergic/Immunologic ED: Denies mouth swelling or tongue swelling EXAM Physical Exam Narrative Exam Narrative: 72-year-old male no acute distress vital signs stable afebrile. HEENT exam unremarkable. Lungs clear. Heart regular rhythm rate about 70 no murmur. Abdomen soft, mild suprapubic fullness. No peritoneal signs. Moving all 4 extremities. 1+ pitting edema bilaterally. Chronic not new. Neurologically is awake and alert. Answering questions following commands. Const Vital Signs: 07/31/22 06:03 Temperature 97.1 F L Temperature Source Temporal Pulse Rate 72 Respiratory Rate 15 Blood Pressure 143/77 H Blood Pressure Mean 99 Pulse Ox 97 Oxygen Delivery Method Room Air Positive well nourished and well developed; Negative for cachectic, contractures or unkempt General Appearance ED: well developed and NAD; Negative for unkempt, cachectic, contractures or pallor Nutritional Appearance: Negative for cachectic HEENT Reports moist mucous membranes normocephalic and atraumatic; Negative for trauma or tenderness Eyes PERRL and EOMs intact bilaterally General Eye ED: Negative for pale conjunctiva or scleral icterus Neck no lymphadenopathy, supple and no JVD General: Negative for tenderness Resp normal respiratory effort and clear to auscultation bilaterally Effort and Inspection: Negative for retractions Auscultation: Negative for rales or rhonchi Cardio regular rate, regular rhythm, S1 normal heart sound, S2 normal heart sound and no murmurs Rate: Negative for bradycardia or tachycardic GI non-tender, non-distended and no masses Inspection: Negative for abdominal distention Auscultation: normoactive bowel sounds Palpation: soft; Negative for tender no CVA tenderness Bladder / Kidney Exam: No CVA tenderness Groin / Perineum Exam: Negative for edema Back/Spine no CVA tenderness General Back: Negative for CVA tenderness Cervical Spine: Negative for cervical spine tenderness Thoracic Spine / Upper Back: Negative for thoracic spinal tenderness Lumbar Spine / Lower Back: Negative for lumbar spinal tenderness Extremity Negative for normal to inspection Extremity Narrative: 1+ edema bilaterally. Chronic General Extremety ED: Yes edema General Extremity: edema Neuro oriented x3, CN's II-XII intact bilaterally and moves all extremities Sensorium / Orientation: alert, oriented to person, oriented to place and oriented to time; Negative for orientation impaired, confused or lethargic Motor Exam: strength 5/5 throughout Psych mental status grossly normal Appearance: Negative for unkempt Attitude: No agitated Mood & Affect: Negative for depressed, anxious or tearful Thought Process: normal thought process Thought Content: normal thought content Attention / Concentration: Negative for other Skin General Skin Exam: Negative for jaundice or pallor Lesions: no lesions Rashes: no rashes Trauma: Negative for abrasion or laceration MDM MDM MDM Narrative Medical decision making narrative: 72-year-old male prostate cancer with urinary retention. Hooper catheter replaced. We will check a UA. Otherwise exam is benign. Sending placed a Hooper catheter. He cannot get a pass his prostate. It is draining grossly bloody urine. But is not in appropriate position. They have not inflated the balloon. I discussed with the patient and his . He would rather go to his own urologist at [facility]. I have spoken to the transfer line and will try to make arrangements for him to go up to [facility] to have the Hooper catheter placed by the urologist or even in surgery. History & Record Review Discussion w/independent historian: Patient and Significant other Additional record(s) reviewed:: Prior inpatient record, Prior outpatient record, Prior ED visit and Prior labs Lab Data Attestation: I reviewed the patient's lab results. Lab results narrative: Urinalysis shows 250 occult blood. Greater than 100 red cells. 0-5 whites. 1+ bacteria. Nitrates. Labs: Laboratory Results - last 24 hr 07/31/22 06:45 Urine Color Red Urine Clarity Cloudy Urine pH 6.5 Ur Specific [place] 1.015 Urine Protein 100 H Urine Glucose (UA) Normal Urine Ketones Negative Urine Occult Blood 250 H Urine Nitrite Negative Urine Bilirubin Negative Urine Urobilinogen Normal Ur Leukocyte Esterase 100 H Urine RBC > 100 SEEN Urine WBC 0-5 SEEN Ur Squamous Epith Cells 0 SEEN Urine Bacteria 1+ Urine Mucus 0 SEEN Discharge Plan Triage Chief Complaint: Complaint ED Provider: Leonard Antunez Dx/Rx/DC Orders Clinical Impression: Acute urinary retention, Gross hematuria, History of prostate cancer, History of diabetes mellitus Prescriptions: No Action hydralazine 10 mg Tablet 20 mg PO TID amlodipine 5 mg Tablet 5 mg PO DAILY docusate sodium [Stool Softener] 100 mg Capsule 100 mg PO BID PRN (Reason: Constipation) finasteride 5 mg Tablet 5 mg PO DAILY senna 8.6 mg Capsule 17.2 mg PO DAILY sitagliptin phosphate 100 mg Tablet 100 mg PO DAILY oxybutynin chloride 10 mg tablet extended release 24hr 10 mg PO DAILY tramadol 50 mg tablet 50 mg PO Q4H PRN PRN (Reason: Pain) glimepiride 1 mg Tablet 1 mg PO DAILY oxycodone-acetaminophen [oxycodone-acetaminophen] 1 TABLET tablet 1 tab PO Q6H PRN PRN (Reason: Pain) 3 Days Qty: 12 0RF Primary Care Provider: Christopher Kapadia Referrals: Christopher Kapadia MD [Primary Care Provider] - Disposition Disposition: Acute Care Hospital
[2022-07-31 06:52] LABS: Mucous, Urine 0 SEEN /hpf (<or=2+); Squamous Epithelial Cells - UA 0 SEEN /hpf (0-5)
[2022-07-31 07:15] LABS: Color, Urine Red (Yellow); Glucose, Dipstick Normal (Normal); Ketone-Dipstick Negative (Negative); Leukocyte Esterase-Dipstick 100 /ul (Negative); Nitrite-Dipstick Negative (Negative); Occult Blood-Urine 250 /ul (Negative); Protein-Dipstick 100 mg/dl (Negative); Specific Gravity, Urine 1.015 (1.002-1.030); Urine Bilirubin Dipstick Negative (Negative); Urine Clarity Cloudy (Clear); Urine Urobilinogen Normal (Normal); Urine pH 6.5 (5.0 - 8.0)
[2022-07-31 07:25] LABS: Bacteria 1+ /hpf (None Seen); Red Blood Cells-Urine > 100 SEEN /hpf (0-5); White Blood Cells 0-5 SEEN /hpf (0-5)
--- NOTE | 2022-07-31 08:18 | ED.RN ---
14 coude is placed but unable to inflate the balloon, left in place and draining 700 cc of urine. physician aware
[2022-07-31 08:19] VITALS: BP 138/77; PULSE 72; RESP 15; O2SAT 96
--- NOTE | 2022-07-31 09:47 | NURSING ---
CALLED [facility]. UROLOGY HASN'T CALLED HER BACK. SHE WILL FIND HIM.
[2022-07-31 10:21] VITALS: BP 142/69; PULSE 75; RESP 16; O2SAT 96
--- NOTE | 2022-07-31 10:55 | NURSING ---
PATIENT IS TO GO ER TO ER. [facility]
--- NOTE | 2022-07-31 11:20 | NURSING ---
CALLED [facility], ETA IS 20 MIN
[2022-07-31 11:28] VITALS: BP 146/71; PULSE 75; RESP 16; O2SAT 97
== END 2022-07-31 11:52 | disposition short-term general hospital (02) ==
PROVIDERS: Emergency Provider Emergency Medicine; PCP Family Medicine; Visit Provider Emergency Medicine
DX: R33.9 Retention of urine, unspecified (principal); C79.9 Secondary malignant neoplasm of unspecified site; C61 Malignant neoplasm of prostate; E11.9 Type 2 diabetes mellitus without complications; R31.0 Gross hematuria; I10 Essential (primary) hypertension; Z79.84 Long term (current) use of oral hypoglycemic drugs; Z79.899 Other long term (current) drug therapy; Z87.891 Personal history of nicotine dependence
CPT/HCPCS: 81001; 99282

== ENCOUNTER 2022-08-31 09:53 | Emergency (ER) | payer MEDICARE, OTHER, SELFPAY ==
[2022-08-31 09:53] VITALS: BP 135/70; PULSE 84; RESP 16; TEMP 36.2; O2SAT 100; BMI 29.9
--- NOTE | 2022-08-31 10:10 | EDS_ITS ---
HPI History of Present Illness Chief Complaint: Complaint Informant: patient and spouse/S.O. Narrative Narrative: Patient having acute urinary retention, has been feeling like he needs to urinate but unable to overnight and presents early in the morning. He has a history of prostate cancer, he has had a TURP procedure 3 times, he has a rare recurrence of the tumor in the region that is suspected to be prostate- related, patient also has had small amounts of hematuria for the past year or 2, and he is chronically incontinent. He does not self catheter have of Hooper indwelling, he states he simply just let the urine run into his depends and he has had nothing but minor dribbling this morning. No back pain, vomiting, fevers or chills. He takes no anticoagulants. He is following with [facility] oncology locally, he is not following with our urologist here. He had radiation for quite a while and is chronically constipated related that. He and significant other state that he needs a coud? catheter. [facility] Medical History Colon polyps Diabetes type 2, controlled Diverticulosis Hard of hearing History of diabetes mellitus Hypertension Immunocompromised patient Kidney stones Marijuana use Pancytopenia Prostate cancer Prostate cancer metastatic to multiple sites Small cell carcinoma of prostate Snoring Tinnitus of both ears Wrist fracture, left Home Medications amlodipine 5 mg tablet 5 mg PO DAILY htn 10/05/21 [History Last Taken 10/05/21] docusate sodium 100 mg capsule (Stool Softener) 100 mg PO BID PRN Constipation 10/05/21 [History Last Taken 10/05/21] finasteride 5 mg tablet 5 mg PO DAILY Check with primary doctor 10/05/21 [History Last Taken 10/05/21] hydralazine 10 mg tablet 20 mg PO TID Check with primary doctor 10/05/21 [History Last Taken 10/05/21] sennosides 8.6 mg capsule (senna) 17.2 mg PO DAILY Check with primary doctor 10/05/21 [History Last Taken 10/05/21] sitagliptin phosphate 100 mg tablet 100 mg PO DAILY Check with primary doctor 10/05/21 [History Last Taken 10/05/21] oxybutynin chloride 10 mg tablet,extended release 24 hr 10 mg PO DAILY 11/05/21 [History Last Taken Unknown] glimepiride 1 mg tablet 1 mg PO DAILY 03/18/22 [History Last Taken Unknown] tramadol 50 mg tablet 50 mg PO Q4H PRN PRN Pain 03/18/22 [History Last Taken U nknown] oxycodone-acetaminophen 5 mg-325 mg tablet 1 tab PO Q6H PRN PRN Pain 3 days #12 TABLETS 03/19/22 [Rx Last Taken Unknown] sulfamethoxazole 800 mg-trimethoprim 160 mg tablet 1 tab PO BID #6 TABLETS 08/31/22 [Rx Last Taken Unknown] Allergy/AdvReac Type Severity Reaction Status Date / Time diphenhydramine AdvReac CONFUSION Verified 08/31/22 09:55 [From Benadryl] Social History household members: spouse Smoking Status: Former smoker substance use type: does not use ROS ROS ED Constitutional Constitutional ED: Denies chills or fever(s) Cardiovascular Cardiovascular: Denies chest pain Respiratory/Chest Respiratory/Chest: Denies dyspnea Gastrointestinal Gastrointestinal: Reports abdominal pain and constipation; Denies diarrhea, melena, nausea or vomiting Genitourinary Genitourinary ED: Reports as per HPI, dysuria, hematuria and other Details: Acute urinary retention Musculoskeletal Musculoskeletal: Denies back pain EXAM Physical Exam Const Vital Signs: 08/31/22 09:53 Temperature 97.1 F L Temperature Source Temporal Pulse Rate 84 Respiratory Rate 16 Blood Pressure 135/70 H Blood Pressure Mean 91 Pulse Ox 100 Oxygen Delivery Method Room Air Positive well nourished and well developed General Appearance ED: well developed and NAD HEENT Reports moist mucous membranes normocephalic and atraumatic Eyes PERRL and EOMs intact bilaterally Neck supple Resp normal respiratory effort and clear to auscultation bilaterally GI non-distended GI Narrative: Suprapubic tenderness no guarding or rebound Auscultation: normoactive bowel sounds Palpation: soft Narrative: Penis normal. No blood at urethral meatus. No testicular tenderness. Back/Spine no CVA tenderness Neuro oriented x3, CN's II-XII intact bilaterally, moves all extremities and no focal motor deficits Psych mental status grossly normal MDM MDM MDM Narrative Medical decision making narrative: We used lidocaine urethral followed by nursing placing a coud? without any problems, he drained about a liter of grossly bloody urine, we irrigated this to transparent red, patient felt much better after draining his bladder. Urinalysis is overshadowed by blood, there are white blood cells and no bacteria, but the patient said he was having burning so I am going to put him on 3 days of Bactrim and a culture is sent. We are giving him a leg bag and sending him home with a catheter to follow-up with his [facility] urologist after the weekend. He is comfortable with that plan. Lab Data Attestation: I reviewed the patient's lab results. Labs: Laboratory Results - last 24 hr 08/31/22 10:25 Urine Color Red Urine Clarity Cloudy Urine pH 8.0 Ur Specific [place] 1.015 Urine Protein 500 H Urine Glucose (UA) Normal Urine Ketones 5 H Urine Occult Blood 250 H Urine Nitrite Negative Urine Bilirubin Negative Urine Urobilinogen Normal Ur Leukocyte Esterase 25 H Urine RBC > 100 SEEN Urine WBC 10-25 SEEN Ur Squamous Epith Cells 0 SEEN Urine Bacteria 0 SEEN Urine Mucus 0 SEEN Discharge Plan Triage Chief Complaint: Complaint ED Provider: Bhavin Deras Dx/Rx/DC Orders Clinical Impression: Acute urinary retention, Hematuria Instructions: ED Hooper Catheter, Care, ED Urinary Retention, Male Prescriptions: New sulfamethoxazole-trimethoprim [sulfamethoxazole-trimethoprim] 800-160 mg tablet 1 tab PO BID Qty: 6 0RF No Action hydralazine 10 mg Tablet 20 mg PO TID amlodipine 5 mg Tablet 5 mg PO DAILY docusate sodium [Stool Softener] 100 mg Capsule 100 mg PO BID PRN (Reason: Constipation) finasteride 5 mg Tablet 5 mg PO DAILY senna 8.6 mg Capsule 17.2 mg PO DAILY sitagliptin phosphate 100 mg Tablet 100 mg PO DAILY oxybutynin chloride 10 mg tablet extended release 24hr 10 mg PO DAILY tramadol 50 mg tablet 50 mg PO Q4H PRN PRN (Reason: Pain) glimepiride 1 mg Tablet 1 mg PO DAILY oxycodone-acetaminophen [oxycodone-acetaminophen] 1 TABLET tablet 1 tab PO Q6H PRN PRN (Reason: Pain) 3 Days Qty: 12 0RF Primary Care Provider: Christopher Kapadia Referrals: Christopher Kapadia MD [Primary Care Provider] - Doctor,Your [Non-Staff] - (next week w/ your Urologist) Disposition Disposition: Home, Self Care
[2022-08-31] MEDS: Lidocaine Jelly 2% 20 ML Syringe (URO-JET) 1 APPLIC TOPICAL (10:37)
[2022-08-31 10:38] LABS: Bacteria 0 SEEN /hpf (None Seen); Mucous, Urine 0 SEEN /hpf (<or=2+); Squamous Epithelial Cells - UA 0 SEEN /hpf (0-5)
[2022-08-31 10:42] LABS: Color, Urine Red (Yellow); Glucose, Dipstick Normal (Normal); Ketone-Dipstick 5 mg/dl (Negative); Leukocyte Esterase-Dipstick 25 /ul (Negative); Nitrite-Dipstick Negative (Negative); Occult Blood-Urine 250 /ul (Negative); Protein-Dipstick 500 mg/dl (Negative); Specific Gravity, Urine 1.015 (1.002-1.030); Urine Bilirubin Dipstick Negative (Negative); Urine Clarity Cloudy (Clear); Urine Urobilinogen Normal (Normal)
[2022-08-31 11:21] LABS: White Blood Cells 10-25 SEEN /hpf (0-5)
[2022-08-31 11:22] LABS: Red Blood Cells-Urine > 100 SEEN /hpf (0-5)
[2022-08-31] MEDS: Smz/Tmp Ds Tablet 1 TABLET PO (11:52)
[2022-08-31 11:54] VITALS: PULSE 78; O2SAT 98
[2022-08-31 11:55] VITALS: PULSE 78; O2SAT 98
== END 2022-08-31 11:55 | disposition home or self-care (01) ==
PROVIDERS: Emergency Provider Emergency Medicine; PCP Family Medicine; Visit Provider Emergency Medicine
DX: R33.9 Retention of urine, unspecified (principal); E11.9 Type 2 diabetes mellitus without complications; I10 Essential (primary) hypertension; R31.9 Hematuria, unspecified; Z87.891 Personal history of nicotine dependence; Z85.46 Personal history of malignant neoplasm of prostate; R30.0 Dysuria
CPT/HCPCS: 51702; 81001; 87086; 99284

== ENCOUNTER 2022-09-01 16:59 | Emergency (ER) | payer MEDICARE, OTHER, SELFPAY ==
[2022-09-01 17:00] VITALS: BP 123/68; PULSE 97; RESP 16; TEMP 36.6; O2SAT 98; BMI 29.0
--- NOTE | 2022-09-01 17:14 | EX.ED.GUMALE ---
HPI History of Present Illness Chief Complaint: Hooper C/O Detail of Chief Complaint: Hooper catheter none not draining. Informant: patient and spouse/S.O. Pain Onset: Today Context: Gradual Onset Timing: Continuous Narrative Narrative: 72-year-old male with known history of prostate CA. Has had a prior TURP procedure. Currently undergoing chemotherapy for his prostate cancer with metastases. Yesterday presented for urinary retention and a Hooper catheter placed. They were able to get a 14 [place] coud? in. He had some bleeding which he also had yesterday and today the Hooper is not draining. Prior similar symptoms: Yes Recent Illness/Hospitalization: Yes PFSH PFS Medical History Colon polyps Diabetes type 2, controlled Diverticulosis Hard of hearing History of diabetes mellitus Hypertension Immunocompromised patient Kidney stones Marijuana use Pancytopenia Prostate cancer Prostate cancer metastatic to multiple sites Small cell carcinoma of prostate Snoring Tinnitus of both ears Wrist fracture, left Home Medications amlodipine 5 mg tablet 5 mg PO DAILY htn 10/05/21 [History Last Taken 10/05/21] docusate sodium 100 mg capsule (Stool Softener) 100 mg PO BID PRN Constipation 10/05/21 [History Last Taken 10/05/21] finasteride 5 mg tablet 5 mg PO DAILY Check with primary doctor 10/05/21 [History Last Taken 10/05/21] hydralazine 10 mg tablet 20 mg PO TID Check with primary doctor 10/05/21 [History Last Taken 10/05/21] sennosides 8.6 mg capsule (senna) 17.2 mg PO DAILY Check with primary doctor 10/05/21 [History Last Taken 10/05/21] sitagliptin phosphate 100 mg tablet 100 mg PO DAILY Check with primary doctor 10/05/21 [History Last Taken 10/05/21] oxybutynin chloride 10 mg tablet,extended release 24 hr 10 mg PO DAILY 11/05/21 [History Last Taken Unknown] glimepiride 1 mg tablet 1 mg PO DAILY 03/18/22 [History Last Taken Unknown] tramadol 50 mg tablet 50 mg PO Q4H PRN PRN Pain 03/18/22 [History Last Taken Unknown] oxycodone-acetaminophen 5 mg-325 mg tablet 1 tab PO Q6H PRN PRN Pain 3 days #12 TABLETS 03/19/22 [Rx Last Taken Unknown] sulfamethoxazole 800 mg-trimethoprim 160 mg tablet 1 tab PO BID #6 TABLETS 08/31/22 [Rx Last Taken Unknown] Allergy/AdvReac Type Severity Reaction Status Date / Time diphenhydramine AdvReac CONFUSION Verified 09/01/22 17:00 [From Benadryl] Social History household members: spouse Smoking Status: Former smoker substance use type: does not use ROS ROS ED ROS Narrative Denies recent illness. Review of Systems ROS Unobtainable: Denies due to encephalopathy Constitutional Constitutional ED: Denies fever(s) Eyes Eyes: Denies blurry vision ENT ENT ED: Denies ear pain Cardiovascular Cardiovascular: Denies chest pain Respiratory/Chest Respiratory/Chest: Denies cough or dyspnea Gastrointestinal Gastrointestinal: Denies abdominal pain Genitourinary Genitourinary ED: Denies dysuria Musculoskeletal Musculoskeletal: Denies arthralgias Integumentary Denies abscess Neurologic Neurologic: Denies headache(s) Psychiatric Psychiatric: Denies anxiety Endocrine Endocrinology: Denies polydipsia Hematologic/Lymphatic Hematologic/Lymphatic: Denies easy bleeding Allergic/Immunologic Allergic/Immunologic ED: Denies mouth swelling EXAM Physical Exam Narrative Exam Narrative: 72-year-old male no acute distress. Vital signs stable afebrile. at bedside. HEENT exam unremarkable. Lungs clear. Heart regular rhythm. Abdomen soft nontender. 14 [place] Ho[address] catheter in place. Blood in the Hooper catheter bag. Currently not draining. Moving all 4 extremities. 1+ edema lower extremities. He is awake and alert. Const Vital Signs: 09/01/22 17:00 Temperature 97.8 F Temperature Source Temporal Pulse Rate 97 Respiratory Rate 16 Blood Pressure 123/68 H Blood Pressure Mean 86 Pulse Ox 98 Positive well nourished and well developed; Negative for obese, cachectic, contractures or unkempt General Appearance ED: well developed and NAD; Negative for unkempt, cachectic, contractures or pallor Nutritional Appearance: Negative for cachectic or obese HEENT Reports moist mucous membranes normocephalic and atraumatic; Negative for trauma or tenderness Eyes PERRL and EOMs intact bilaterally Neck no lymphadenopathy and no JVD Resp normal respiratory effort and clear to auscultation bilaterally Effort and Inspection: Negative for retractions Auscultation: Negative for rales, rhonchi or wheezes Cardio regular rate, regular rhythm, S1 normal heart sound, S2 normal heart sound and no murmurs Rate: Negative for bradycardia or tachycardic Rhythm: Negative for abnormal rhythm Heart Sounds: Negative for other GI non-tender, non-distended and no masses Inspection: Negative for abdominal distention Auscultation: normoactive bowel sounds Palpation: soft; Negative for tender or guarding no CVA tenderness Groin / Perineum Exam: edema Back/Spine no CVA tenderness General Back: Negative for CVA tenderness Cervical Spine: Negative for cervical spine tenderness Thoracic Spine / Upper Back: Negative for thoracic spinal tenderness Lumbar Spine / Lower Back: Negative for lumbar spinal tenderness Extremity Negative for normal to inspection General Extremety ED: Yes edema; Negative for pulses abnormal General Extremity: edema; Negative for pulses abnormal Neuro oriented x3, CN's II-XII intact bilaterally, moves all extremities and no focal motor deficits Sensorium / Orientation: alert, oriented to person, oriented to place and oriented to time; Negative for orientation impaired, confused, lethargic or stuporous Motor Exam: strength 5/5 throughout Psych mental status grossly normal Appearance: Negative for unkempt Attitude: No agitated Mood & Affect: Negative for depressed Thought Process: No normal thought process Thought Content: No normal thought content Attention / Concentration: Negative for other Skin General Skin Exam: Negative for jaundice or pallor Lesions: no lesions Rashes: no rashes Trauma: Negative for abrasion or laceration MDM MDM MDM Narrative Medical decision making narrative: 72-year-old male known history of prostate CA. Hooper catheter placed yesterday. Currently obstructed. We will irrigated. I discussed with both the patient and his he only has a 14 [place] coud? catheter in. However they are concerned Anamine is if we remove the current catheter we may not get another one in. So just can irrigate this when at this time. Nurse was able to irrigate the Hooper removed several blood clots and it is flowing well. Patient be discharged home. He has if he has recurrent problems to follow-up with us or his urologist. If this stays in very long the Hooper catheter he may need a larger 1. History & Record Review Discussion w/independent historian: Patient and Family Discharge Plan Triage Chief Complaint: Hooper C/O ED Provider: Leonard Antunez Dx/Rx/DC Orders Clinical Impression: Acute urinary retention, Hematuria, History of prostate cancer Instructions: ED Urinary Retention, Male Prescriptions: No Action hydralazine 10 mg Tablet 20 mg PO TID amlodipine 5 mg Tablet 5 mg PO DAILY docusate sodium [Stool Softener] 100 mg Capsule 100 mg PO BID PRN (Reason: Constipation) finasteride 5 mg Tablet 5 mg PO DAILY senna 8.6 mg Capsule 17.2 mg PO DAILY sitagliptin phosphate 100 mg Tablet 100 mg PO DAILY oxybutynin chloride 10 mg tablet extended release 24hr 10 mg PO DAILY tramadol 50 mg tablet 50 mg PO Q4H PRN PRN (Reason: Pain) glimepiride 1 mg Tablet 1 mg PO DAILY oxycodone-acetaminophen [oxycodone-acetaminophen] 1 TABLET tablet 1 tab PO Q6H PRN PRN (Reason: Pain) 3 Days Qty: 12 0RF sulfamethoxazole-trimethoprim [sulfamethoxazole-trimethoprim] 800-160 mg tablet 1 tab PO BID Qty: 6 0RF Primary Care Provider: Christopher Kapadia Referrals: Christopher Kapadia MD [Primary Care Provider] - As Needed Activity Restrictions/Additional Instructions: Phone with urologist if you have further problems. The blood clots may continue to give you carotis and could obstruct the 14 [place]ovan Hooper catheter which is what you have. Make sure you are drinking plenty of fluids. Return if he gets obstructed again. Disposition Disposition: Home, Self Care
--- NOTE | 2022-09-01 17:44 | ED.RN ---
1735: Hooper irrigated with 500ml sterile water. Many clots irrigated. Dr. Antunez notified.
== END 2022-09-01 18:03 | disposition home or self-care (01) ==
PROVIDERS: Emergency Provider Emergency Medicine; PCP Family Medicine; Visit Provider Emergency Medicine
DX: T83.091A Other mechanical complication of indwelling urethral catheter, initial encounter (principal); C79.9 Secondary malignant neoplasm of unspecified site; C61 Malignant neoplasm of prostate; E11.9 Type 2 diabetes mellitus without complications; R31.9 Hematuria, unspecified; R33.9 Retention of urine, unspecified; I10 Essential (primary) hypertension; Z87.891 Personal history of nicotine dependence; Y73.8 Miscellaneous gastroenterology and urology devices associated with adverse incidents, not elsewhere classified
CPT/HCPCS: 99282

== ENCOUNTER → 2022-09-03 | Outpatient (CLI) | payer MEDICARE, OTHER, SELFPAY ==
--- NOTE | 2022-09-03 08:00 | PET_ITS ---
EXAMINATION: FDG PET/CT ? INDICATIONS: 72-year-old male with a history of primary prostate carcinoma, presenting for restaging examination. ? COMPARISON EXAMINATION: None available ? INDEX LESION SIZE SUV INTERPRETATION Prostate gland 8.1 cm 4.02 Fulfills quantitative criteria for viable neoplasm ? Right inguinal region 20.6 mm, largest 5.1 max Fulfills quantitative criteria for viable neoplasm ? TECHNIQUE: Following the intravenous administration of 13,39 mCi of F-18 deoxyglucose via the right antecubital fossa, multiplanar image acquisitions of the head, neck, chest, abdomen and pelvis to the level of the midthigh, obtained at one-hour post radiopharmaceutical administration contemporaneously interpreted with the current CT of the chest, abdomen and pelvis dated 09/03/2022 via coregistration reveal: ? ? SERUM GLUCOSE LEVEL:? 152 mg/dL? HEIGHT:?? 61 inches WEIGHT:?? 213 pounds ? FINDINGS: ? HEAD/NECK:? There is no evidence of abnormal increased glucose metabolism in the pharyngeal mucosal space, parapharyngeal space, oropharynx, bilateral-lateral and anterior neck, hypopharynx and distribution of the larynx. ? The visualized portion of the cerebral cortical-subcortical structures demonstrate symmetric and preserved glucose metabolism. ? CHEST:? There is no quantitative scintigraphic evidence of abnormal increased glucose metabolism within the context of the bilateral hemithorax pulmonary parenchyma, right and left hemithorax at the pleural interface, mediastinal structures, and left-right thoracic perihilum. The left ventricular myocardium visualization is consistent with [place]. ? CT of the chest demonstrates the following anatomic characteristics: Port-A-Cath. Atherosclerotic calcification is defined in the thoracic aorta without evidence of dilatation, aneurysm formation. Coronary artery calcification is observed.? Bilateral axillary soft tissue densities are ametabolic. There are no parenchymal densities-nodules defined in the right and left hemithorax with quantitatively significant increased FDG uptake. A left hemithorax pleural effusion is nonglucose avid. ? ABDOMEN/PELVIS:? Heterogeneous glucose metabolism is noted in the lower pelvis associated with pelvic mass formation which appears associated with the prostate gland. The calculated maximum standard uptake value is 4.02. The maximal axial diameter of the metabolic, morphologic abnormality is 8.1 cm. Facilitated uptake is noted in the bilateral posterior pelvis adjacent to the ureteric activity and right inguinal region. The calculated maximum standard uptake value is 5.1. The maximal axial diameter of the largest metabolic, morphologic abnormality is 20.6 mm. Normal physiologic distribution of the radiopharmaceutical is identified in the hepatic (3.5) and splenic parenchyma, both renal units, urinary bladder, and visualized intestinal tract. Contamination artifact is defined in the perineural region. ? CT of the abdomen and pelvis is remarkable for the following: Bilateral ureteral stent placement is noted. Atherosclerotic calcification is defined in the abdominal aorta without evidence of dilatation, aneurysm formation. Abdominal and pelvic arterial calcification is observed. Right-left inguinal soft tissue densities are ametabolic. Dystrophic calcification is defined in the bilateral posterior ischial regions. ? SKELETAL:? There is no evidence of quantitatively significant enhanced glucose metabolism on meticulous inspection of the appendicular and axial skeletal structures. ? Degenerative changes defined in the thoracic and lumbar spine demonstrate no evidence of increased glucose metabolism. There are no sclerotic, mixed sclerotic-lytic, or primarily lytic changes defined in the axial skeletal structures with evidence of increased FDG uptake. ? PET/PET/CT Tumor Base -Thigh Subs IMPRESSION: 1. ABNORMAL EXAMINATION INDICATIVE OF MALIGNANT-VIABLE NEOPLASM. 2. Increased radiopharmaceutical concentration manifest in the prostate gland-pelvic mass fulfills quantitative criteria for viable neoplasm. 3. Enhanced tracer uptake noted in the bilateral posterior pelvis region of the internal iliac lymph node basin and right inguinal region fulfill quantitative criteria for viable neoplasm. Electronic Signature Lazaro Pleitez D.O. . Accurate Quantification of SUVs for this report are calculated using the exclusive [employer]. (U.S. Patent No. 10, 674, 983 B2 [phone] [place] patent EP [phone]). Standardization and correction of the FDG SUV metric via [employer] technology allow for vendor non-specific objective quantitative examination comparison and optimization of the sensitivity and specificity of the FDG PET-CT examination. ? Electronically Signed: Lazaro Pleitez, at 18:15 EDT ,
== END | disposition home or self-care (01) ==
LOC: ONC 07:49
PROVIDERS: PCP Family Medicine; Referring Provider Internal Medicine Hematology & Oncology; Visit Provider Internal Medicine Hematology & Oncology
DX: C34.90 Malignant neoplasm of unspecified part of unspecified bronchus or lung (principal); C61 Malignant neoplasm of prostate
CPT/HCPCS: 78815; A9552

== ENCOUNTER → 2022-11-05 | Outpatient (CLI) | payer MEDICARE, OTHER, SELFPAY ==
--- NOTE | 2022-11-05 08:30 | PET_ITS ---
EXAMINATION: FDG PET-CT INDICATIONS: A 72-year-old male with history of primary prostate carcinoma presenting for restaging examination. COMPARISON EXAMINATION: FDG PET-CT study dated 09/03/22 INDEX LESION SIZE SUV INTERPRETATION PERSISTENT: prostate gland, seminal vesicles 9.4-cm comp to 8.1-cm (09/03/22) 7.0 comp to 4.2 (09/03/22) Fulfills quantitative criteria for viable neoplasm, interim metabolic progression PERSISTENT: right inguinal region, right external iliac lymph nodes, bilateral posterior parasacral lymph node regions 24.1-mm (largest) comp to 20.6-mm (09/03/22) 6.5 (max) comp to 5.1 (09/03/22) Fulfills quantitative criteria for viable neoplasm, interim metabolic progression TECHNIQUE: Following the intravenous administration of 12.06 mCi of F-18 deoxyglucose via the right antecubital fossa, multiplanar image acquisitions of the neck, chest, abdomen and pelvis to level of mid thigh, obtained at one hour post radiopharmaceutical administration contemporaneously interpreted with the current CT of the neck, chest, abdomen and pelvis, to level of mid thigh, dated 11/05/22 via coregistration and FDG PET-CT study dated 09/03/22 reveals: BLOOD GLUCOSE LEVEL:?? 140 mg/dl?HEIGHT:?71 inches?WEIGHT: 205 lbs. FINDINGS: Head/Neck: There is no evidence of abnormal increased glucose metabolism in the pharyngeal mucosal space, parapharyngeal space, bilateral-lateral and anterior neck, hypopharynx and distribution of the laryngeal structures. The visualized portion of the cerebral cortical-subcortical structures demonstrate symmetric and preserved glucose metabolism. CHEST: There is no quantitative scintigraphic evidence of abnormal increased glucose metabolism within the context of the bilateral hemithorax pulmonary parenchyma, right and left hemithorax pleural interface, mediastinal structures and right-left thoracic perihilum. Previously defined morphologic-anatomic changes noted on review of CT of the chest dated 09/03/22, are essentially unchanged on the current examination. Abdomen/Pelvis: Facilitated uptake remains apparent in the prostate gland and seminal vesicles. The calculated maximal standard uptake value is 7.0, compared to 4.2. The maximal axial diameter of the metabolic, morphologic abnormality is currently 9.4-cm, compared to 8.1-cm. Redefined increased labeled glucose uptake remains evident in the right inguinal, right external iliac, the bilateral posterior parasacral lymph node regions with a current calculated maximal standard uptake value of 6.3, compared to 5.1. The maximal axial diameter of the largest metabolic, morphologic abnormality is 24.1-mm, compared to 20.6-mm. Normal physiologic distribution of the radiopharmaceutical is apparent in the hepatic (3.1/3.5) and splenic parenchyma, both renal units, bladder and visualized intestinal tract. The right and left kidney collecting systems are prominent in presentation. Bilateral ureteral stent placement is noted. Review of CT of the abdomen and pelvis dated 09/03/22 demonstrates no significant interval change. Skeletal: Degenerative changes are noted in the cervical, thoracic and lumbar spine without evidence of increased radiopharmaceutical concentration. PET/PET/CT Tumor Base -Thigh Subs IMPRESSION: 1. ABNORMAL EXAMINATION INDICATIVE OF MALIGNANT VIABLE NEOPLASM. 2. Increased radiopharmaceutical concentration redefined in the distribution of the prostate gland and seminal vesicles fulfills quantitative criteria for malignant transformation. 3. Redefined increased radiopharmaceutical concentration noted in the right inguinal region, right external iliac lymph node basin, the bilateral posterior parasacral lymph node regions fulfills quantitative criteria for viable neoplasm. 4. Overall, compared to the prior FDG PET study dated 09/03/22, there is interim metabolic progression of defined viable neoplastic disease. Electronic Signature Lazaro Pleitez D.O. Accurate Quantification of SUVs for this report are calculated using the exclusive [employer], (U.S. Patent No. 10, 674, 983 B2 [phone] patent EP [phone] B1 ). Standardization and correction of the FDG SUV metric exclusively available with [employer] intellectual property, allow for vendor non-specific objective quantitative sequential FDG PET-CT comparison and otherwise unobtainable optimization of the sensitivity and specificity of the examination. [email or web address] Electronically Signed: Lazaro Pleitez DO at 20:49 EDT ,
== END | disposition home or self-care (01) ==
LOC: ONC 08:23
PROVIDERS: PCP Family Medicine; Referring Provider Internal Medicine Hematology & Oncology; Visit Provider Internal Medicine Hematology & Oncology
DX: C61 Malignant neoplasm of prostate (principal); C34.90 Malignant neoplasm of unspecified part of unspecified bronchus or lung
CPT/HCPCS: 78815; A9552

== ENCOUNTER → 2022-12-31 | Outpatient (CLI) | payer MEDICARE, OTHER, SELFPAY ==
--- NOTE | 2022-12-31 07:30 | PET_ITS ---
EXAMINATION: FDG PET/CT ? INDICATIONS: 72-year-old male with a history of primary prostate carcinoma, presenting for restaging examination. ? COMPARISON EXAMINATION: FDG-PET CT study dated 11/05/2022. ? INDEX LESION SIZE SUV INTERPRETATION PERSISTENT Seminal vesicles 9.2 cm compared to 9.4 cm, 11/05/2022 6.4 compared to 7.0, 11/05/2022 Fulfills quantitative criteria for viable neoplasm, minimal interim metabolic change, relative quantitative metabolic stability ? PERSISTENT AND NEW Bilateral posterior parasacral, right external iliac, lymph nodes 28.9 mm compared to 24.1 mm, 11/05/2022 4.4 compared to 6.5, 11/05/2022 Fulfills quantitative criteria for viable neoplasm, interim metabolic progression based on overall number of defined hypermetabolic foci ? TECHNIQUE: Following the intravenous administration of 13.3 mCi of F-18 deoxyglucose via the right antecubital fossa, multiplanar image acquisitions of the head, neck, chest, abdomen and pelvis to the level of the midthigh, obtained at one-hour post radiopharmaceutical administration contemporaneously interpreted with the current CT of the chest, abdomen and pelvis dated 12/31/2022 and prior FDG-PET CT study dated 11/05/2022 via coregistration reveal: ? SERUM GLUCOSE LEVEL:? 126 mg/dL? HEIGHT:?? 72 inches WEIGHT:?? 198 pounds ? FINDINGS: ? HEAD/NECK:? There is no evidence of abnormal increased glucose metabolism in the pharyngeal mucosal space, parapharyngeal space, oropharynx, bilateral-lateral and anterior neck, hypopharynx and distribution of the larynx. ? The visualized portion of the cerebral cortical-subcortical structures demonstrate symmetric and preserved glucose metabolism. ? CHEST:? There is visualized radiopharmaceutical concentration noted in the left ventricular myocardium, consistent with the [place]. Enhanced FDG uptake is noted in the descending thoracic aorta commensurate with activated leukocytes associated with atherosclerotic plaque formation. ? CT of the chest demonstrates the following anatomic characteristics: Port-A-Cath. On review of CT of the chest report, there is no definitive interval change compared to the study dated 11/05/2022. Calcified pleural plaque formation remains apparent in the right upper posterior hemithorax. ? ABDOMEN/PELVIS:? Facilitated radiopharmaceutical concentration remains apparent in the seminal vesicles, generating a current calculated standard uptake value of 6.4 compared to 7.0 noted on the prior examination dated 11/05/2022. The maximum axial diameter of the metabolic, morphologic abnormality is 9.2 cm compared to 9.4 cm. Redefined increased radiopharmaceutical concentration and newly apparent foci of increased radiopharmaceutical concentration are noted in the parasacral lymph node reaching bilaterally. The right external iliac lymph nodes have newly apparent in the right obturator lymph node basin. The current calculated standard uptake value is 4.4 compared to 6.5. The maximum axial diameter of the largest corresponding abnormality is 28.9 mm compared to 24.1 mm. Normal physiologic distribution of the radiopharmaceutical is identified in the hepatic and splenic parenchyma, both renal units, urinary bladder, and visualized intestinal tract. CT of the abdomen and pelvis is remarkable for the following: Bilateral ureteral stent placement remains apparent. On review of CT of the chest report, there is no definitive interval change compared to the study dated 11/05/2022. ? SKELETAL: There is homogenous enhanced glucose concentration evident in the visualized appendicular and axial skeletal structures. PET/PET/CT Tumor Base -Thigh Subs IMPRESSION: 1. ABNORMAL EXAMINATION INDICATIVE OF MALIGNANT-VIABLE NEOPLASM. 2. Increased radiopharmaceutical concentration redefined in the region of the seminal vesicles fulfills quantitative criteria for viable neoplasm. 3. Both redefined and newly apparent increased tracer uptake noted in the bilateral posterior parasacral, right external iliac, and right obturator lymph node basins fulfills quantitative criteria for viable neoplasm. 4. Overall, compared to the prior FDG-PET CT study dated 11/05/2022, there is continued demonstration of viable neoplasm within the seminal vesicles, manifesting relative quantitative metabolic stability. Metabolic progression of defined viable neoplasm is noted in the bilateral posterior parasacral, right external iliac, and obturator lymph node basins secondary to the increased number of defined hypermetabolic foci. ? Electronic Signature Lazaro Pleitez D.O. Accurate Quantification of SUVs for this report are calculated using the exclusive [employer] Technology. (U.S. Patent No. 10, 674, 983 B2 [phone] patent [phone] B1). Standardization and correction of the FDG SUV metric via [employer] technology allow for vendor non-specific objective quantitative examination comparison and optimization of the sensitivity and specificity of the FDG PET-CT examination. . [email or web address] Electronically Signed: Lazaro Pleitez DO at 23:17 EDT ,
== END | disposition home or self-care (01) ==
LOC: ONC 08:21
PROVIDERS: PCP Family Medicine; Referring Provider Internal Medicine Hematology & Oncology; Visit Provider Internal Medicine Hematology & Oncology
DX: C61 Malignant neoplasm of prostate (principal); C77.5 Secondary and unspecified malignant neoplasm of intrapelvic lymph nodes
CPT/HCPCS: 78815; A9552

== ENCOUNTER → 2023-03-25 | Outpatient (CLI) | payer MEDICARE, OTHER, SELFPAY ==
--- NOTE | 2023-03-25 08:00 | PET_ITS ---
EXAMINATION: FDG PET/CT ? INDICATIONS: 72-year-old male with a history of primary prostate carcinoma, presenting for restaging examination. ? COMPARISON EXAMINATION:? Previous FDG PET CT study dated 12/31/2022 ? INDEX LESION SIZE SUV INTERPRETATION PERSISTENT: pelvis soft tissue mass formation circumferential to urinary bladder 9.9 cm compared to 9.2 cm 18.3 compared to 6.4 Fulfills quantitative criteria for viable neoplasm, interim metabolic progression ? PERSISTENT: Bilateral lower hemipelvis, right inguinal region 30.5 mm, largest compared to 28.9 mm 4.7 max compared to 4.4 Fulfills quantitative criteria for viable neoplasm, relative metabolic stability ? NEW : Right and left lobe hepatic parenchyma 26.9 mm 4.6, ratio >2.0 Fulfills quantitative criteria for viable neoplasm ? NON-INDEX LESION ? ? ? Right iliac wing ? 1.9 Quantitative criteria for viable neoplasm not fulfilled ? ? TECHNIQUE: Following the intravenous administration of 11.69 mCi of F-18 deoxyglucose via the right wrist, multiplanar image acquisitions of the head, neck, chest, abdomen and pelvis to the level of the midthigh, obtained at one-hour post radiopharmaceutical administration contemporaneously interpreted with the current CT of the chest, abdomen and pelvis dated 03/25/2023 via coregistration and previous FDG PET CT study dated 12/31/2022 reveal: ? SERUM GLUCOSE LEVEL:? 178 mg/dL? HEIGHT:?? 72 inches WEIGHT:?? 194 pounds ? FINDINGS: ? HEAD/NECK:? There is no evidence of abnormal increased glucose metabolism in the pharyngeal mucosal space, parapharyngeal space, oropharynx, bilateral-lateral and anterior neck, hypopharynx and distribution of the larynx. ? The visualized portion of the cerebral cortical-subcortical structures demonstrate symmetric and preserved glucose metabolism. ? CHEST:? There is no quantitative scintigraphic evidence of abnormal increased glucose metabolism within the context of the bilateral hemithorax pulmonary parenchyma, right and left hemithorax at the pleural interface, mediastinal structures, and left-right thoracic perihilum. ? CT of the chest demonstrates the following anatomic characteristics: Atherosclerotic calcification is defined in the thoracic aorta without evidence of dilatation, aneurysm formation. Coronary artery calcification is observed. Pericardial thickening-effusion is ametabolic. Paraseptal emphysematous changes are defined in the bilateral upper lung zones. Mediastinal and bilateral axillary soft tissue densities are ametabolic. ? ABDOMEN/PELVIS:? Redefined facilitated uptake is noted in the lower pelvis associated with pelvic mass formation circumferential to the urinary bladder. The calculated maximum standard uptake value is 18.3 compared to 6.4. The maximal axial diameter of the metabolic, morphologic abnormality is 9.9 cm as opposed to 9.2 cm defined on the prior examination. Increased glucose metabolism is redefined in the bilateral hemipelvic mesentery as well as right inguinal region. The calculated maximum standard uptake value is 4.7 compared to 4.4. The largest individual soft tissue density is 30.5 mm and 28.9 mm demonstrated on the prior examination. Facilitated radiopharmaceutical concentration is currently manifest in the left and right lobe liver (3.8). The calculated maximum standard uptake value is 4.6 with a lesion:liver background ratio >2.0. The largest corresponding hypermetabolic focus demonstrates a maximal axial diameter of 26.9 mm. Normal physiologic distribution of the radiopharmaceutical is identified in the splenic parenchyma, both renal units, urinary bladder, and visualized intestinal tract. ? CT of the abdomen and pelvis is remarkable for the following: Peripelvic cyst , hydronephrosis formation is noted in the right kidney. A dilated collecting system is manifest in the left renal unit. Exophytic cyst formation is noted in the left kidney. Atherosclerotic calcification is defined in the abdominal aorta without evidence of dilatation, aneurysm formation. Abdominal-pelvic arterial calcification is observed. Calcification is noted in the pancreatic body. Ureteral stent placement is noted bilaterally. Additional bilateral inguinal soft tissue densities are ametabolic. ? SKELETAL:? Facilitated uptake noted in the right iliac wing demonstrates a calculated standard uptake value of 1.9. Quantitative criteria for viable osseous neoplasm are not fulfilled. ? PET/PET/CT Tumor Base -Thigh Subs IMPRESSION: 1. ABNORMAL EXAMINATION INDICATIVE OF MALIGNANT-VIABLE NEOPLASM. 2. Increased radiopharmaceutical concentration defined in the lower pelvis associated with pelvic mass formation, as well as bilateral lower hemipelvic mesentery and right inguinal region fulfill quantitative criteria for viable neoplasm. 3. Enhanced tracer uptake visualized in the right and left lobe hepatic parenchyma fulfill quantitative criteria for viable hepatic parenchymal neoplasm. 4. Facilitated uptake noted in the right iliac wing does not fulfill quantitative criteria for viable osseous neoplasm. (Yasmin et al, Clinical Nuclear Medicine, 29:161, 2004). 5. Overall compared to the examination dated 12/31/2022, there is interim metabolic progression of defined lower pelvic neoplastic disease, newly visualized hepatic parenchymal metastatic involvement and relative metabolic stability of the remaining pelvic hypermetabolic foci. Electronic Signature Lazaro Pleitez D.O. Accurate Quantification of SUVs for this report are calculated using the exclusive [employer]. (U.S. Patent No. 10, 674, 983 B2 [phone] [place] patent [phone] B1). Standardization and correction of the FDG SUV metric via [employer] technology allow for vendor non-specific objective quantitative examination comparison and optimization of the sensitivity and specificity of the FDG PET-CT examination. . [email or web address] Electronically Signed: Lazaro Pleitez DO at 12:07 EST ,
== END | disposition home or self-care (01) ==
PROVIDERS: PCP Family Medicine
DX: C61 Malignant neoplasm of prostate (principal); R10.2 Pelvic and perineal pain
CPT/HCPCS: 78815; A9552